=== PATIENT | female | born 1995 | race Caucasian/White ===

== ENCOUNTER 2021-11-05 14:13 | Outpatient (REF) | payer OTHER, SELFPAY ==
[2021-11-05 15:01] LABS: IDNOW Serial# 08D9AD1C
[2021-11-05 15:02] LABS: COVID-19 Test Negative (Negative)
== END 2021-11-05 14:14 | disposition home or self-care (01) ==
LOC: HO.LAB 14:13
PROVIDERS: Visit Provider Internal Medicine
DX: Z20.822 Contact with and (suspected) exposure to COVID-19 (principal)
CPT/HCPCS: 36415; 87635

== ENCOUNTER 2021-11-19 17:48 | Outpatient (REF) | payer OTHER, SELFPAY ==
[2021-11-19 18:40] LABS: COVID-19 Test Positive (Negative)
== END 2021-11-19 18:04 | disposition home or self-care (01) ==
LOC: HO.LAB 18:03
PROVIDERS: Visit Provider Internal Medicine
DX: Z20.822 Contact with and (suspected) exposure to COVID-19 (principal)
CPT/HCPCS: 36415; 87635

== ENCOUNTER 2022-03-21 17:00 | Outpatient (REF) | payer OTHER, SELFPAY ==
[2022-03-21 17:32] LABS: COVID-19 Test Negative (Negative)
== END 2022-03-21 17:01 | disposition home or self-care (01) ==
LOC: HO.LAB 17:00
PROVIDERS: Visit Provider Internal Medicine
DX: Z20.822 Contact with and (suspected) exposure to COVID-19 (principal)
CPT/HCPCS: 87635

== ENCOUNTER 2023-05-08 22:37 | Emergency (ER) | payer OTHER, SELFPAY ==
--- NOTE | ~2023-05-08 | XR_ITS ---
EXAMINATION: 1. Right foot. 2. Right ankle. CLINICAL INFORMATION: Injury. Pain. COMPARISON: None. TECHNIQUE: 1. Right foot. 3 views 2. Right ankle. 3 views FINDINGS: 1. Right foot. No fracture. No dislocation. Bone and joint are normal. 2. Right ankle. No fracture. No dislocation. Bone and joint are normal. No soft tissue abnormality. XR/XR foot RT 2V IMPRESSION: Right foot. Normal. Right ankle. Normal
--- NOTE | ~2023-05-08 | XR_ITS ---
EXAMINATION: 1. Right foot. 2. Right ankle. CLINICAL INFORMATION: Injury. Pain. COMPARISON: None. TECHNIQUE: 1. Right foot. 3 views 2. Right ankle. 3 views FINDINGS: 1. Right foot. No fracture. No dislocation. Bone and joint are normal. 2. Right ankle. No fracture. No dislocation. Bone and joint are normal. No soft tissue abnormality. XR/XR ankle RT 2V IMPRESSION: Right foot. Normal. Right ankle. Normal
[2023-05-08 22:38] VITALS: BP 135/75; PULSE 92; RESP 18; TEMP 36.6; O2SAT 97; BMI 29.6
--- NOTE | 2023-05-09 01:02 | ED_ITS ---
HPI - Extremity Injury (Lower) General Chief Complaint: Extremity Injury, Lower Stated Complaint: R ankle inj Time Seen by Provider: 05/09/23 00:38 Source: patient Mode of arrival: ambulatory Limitations: no limitations History of Present Illness HPI Narrative: Patient is a 27-year-old female presents emergency department for evaluation of right ankle pain. She reports at approximately 2000, she tripped down 2 stairs. Reports inversion of the right foot. She is experiencing pain to the lateral aspect of the right foot radiating to the lateral ankle. Denies numbness, tingling. Denies any prior injury to this ankle. Related Data Home Medications Medication Instructions Recorded Confirmed levothyroxine 137 mcg tablet 137 mcg PO DAILY 05/04/23 Review of Systems Review of Systems: Yes all other systems are reviewed and are negative [facility] Past Medical History Attestation statement: The following information was validated with the patient. Source: old records reviewed Social History Social History Advance Directives: No Advance Directives Information Provided: Yes Physical Exam Vital Signs: Vital Signs: Last Vital Signs Temp 98 F 05/08/23 22:38 Pulse 92 05/08/23 22:38 Resp 18 05/08/23 22:38 BP 135/75 05/08/23 22:38 Pulse Ox 97 05/08/23 22:38 O2 Del Method Room Air 05/08/23 22:38 BMI result Body Mass Index 29.6 Appearance: Alert.?Oriented to person, place and time. No acute distress.?Normal affect. CVS: Heart sounds normal. Normal heart rate and rhythm.? Pulses normal.?? Respiratory: No respiratory distress.? Lung sounds clear to auscultation bilaterally?? Skin: Skin warm and dry.? Normal skin color.? Normal skin turgor.?? Extremities: No lower extremity edema.? No calf ttp. 2+ DP/PT pulse bilaterally. Full AROM to right ankle. Neuro: Moves all extremities spontaneously. Sensation intact bilaterally. Ambulates with normal steady gait. Medical Decision Making Medical Decision Making MDM Narrative: Patient is 22 fibroid female who presents emergency department for evaluation of traumatic right ankle/foot pain as noted in HPI. Obtained XR imaging which reveals no acute fracture or dislocation. At this time symptoms most consistent with a sprain. Extremity is neurovascularly intact distally. Advise treatment with acetaminophen/ibuprofen in addition to rest, ice, Keenan bandage for com pression, elevation. Advised outpatient follow-up with primary care provider as needed. Reviewed worrisome signs and symptoms that warrant re-evaluation the emergency department. All questions answered. Stable for discharge. Differential Diagnosis Differential Diagnoses: The differential diagnosis associated with the presentation includes (As noted above) Independent Interpretation I performed an independent interpretation of an: Plain X-Ray (I personally interpreted XR imaging and agree with radiologist impression) Radiology Impression Discussion of test interpretation with radiology: I have reviewed the radiologist's reading. Radiologist Impression: XR/XR foot RT 2V IMPRESSION: Right foot. Normal. Right ankle. Normal Independent Historian Clinical information obtained from an independent historian. History obtained from or confirmed by: Spouse (Affirms history) Prescription Management I considered prescription management with: Pain Medication (Acetaminophen/ibuprofen) Discharge Plan Discharge Clinical Impression: Ankle sprain and strain Patient Disposition: Home, Self-Care Instructions: Ankle Sprain (ED), R.I.C.E. Treatment (ED) Prescriptions: No Action levothyroxine 137 mcg tablet 137 mcg PO DAILY Interventions: ED Discharge Assessment Last Done: 05/09/23 01:19 Discharge Date/Time: 05/09/23 01:20
== END 2023-05-09 01:20 | disposition home or self-care (01) ==
PROVIDERS: Emergency Provider Emergency Medicine
DX: S93.401A Sprain of unspecified ligament of right ankle, initial encounter (principal); S96.911A Strain of unspecified muscle and tendon at ankle and foot level, right foot, initial encounter; W10.8XXA Fall (on) (from) other stairs and steps, initial encounter; Y93.89 Activity, other specified; Y92.9 Unspecified place or not applicable; Y99.9 Unspecified external cause status
CPT/HCPCS: 73600; 73620; 99282; 99283

== ENCOUNTER 2023-06-26 09:46 | Outpatient (REF) | payer OTHER, SELFPAY ==
[2023-06-26 17:48] LABS: CT PCR NOT DETECTED (Not Detect.); NG PCR NOT DETECTED (Not Detect.)
== END 2023-06-26 09:47 | disposition home or self-care (01) ==
LOC: HO.LNP 09:46
PROVIDERS: Visit Provider Obstetrics & Gynecology
DX: Z30.432 Encounter for removal of intrauterine contraceptive device (principal); Z20.2 Contact with and (suspected) exposure to infections with a predominantly sexual mode of transmission
CPT/HCPCS: 0353U; 58301; 81025; 88142

== ENCOUNTER 2023-06-26 09:46 | Outpatient (AMB) | payer OTHER, SELFPAY ==
--- NOTE | 2023-06-26 09:54 | A.OFFVIS_ITS ---
Intake Vital Signs 06/26/23 09:59 Height 5 ft 11 in Weight 211 lb 10.3 oz BMI 29.5 BP 118/70 Intake Visit Reasons: IUD Special Effects Person Required: No Information Interpreted: non-clinical & clinical Eligibility And Occupancy Interviewer: Eligibility And Occupancy Interviewer Present (Jennifer EDMOND) Accompanied by: Self / Same As Patient Allergies No Known Allergies Allergy (Verified 06/26/23 10:01) Is last menstrual period known: No HPI HPI Comments History of Present Illness Details Presenting for annual exam. Last Pap smear was 4-5 years ago. The patient has Mirena IUD inserted in 2019, was diagnosed BRCA2 PFSH Medical History Hypothyroidism Family History Maternal Aunt Breast cancer Mother Breast cancer Paternal Grandfather Skin cancer Maternal Grandmother Skin cancer Paternal Aunt Uterus cancer Social History Household Members: Spouse Housing: House Alcohol intake: current Alcohol intake frequency: holidays/special occasions only Patient Tobacco Use Status: Never used Tobacco Current occupational status: employed Current occupation: [employer] [place] Sexual orientation: Straight/Heterosexual Gender identity: Female Female Reproductive History Menstrual control method: progestin IUCD Review of Systems Const All systems reviewed & are unremarkable except as noted in HPI and below Physical Exam Vital Signs: Last Vital Signs BP 118/70 06/26/23 09:59 BMI result Body Mass Index 29.5 Chest Chest palpation & inspection: normal inspection of the chest Breast/axilla inspection: normal inspection of the breasts and normal inspection of the axillae Breast/axilla palpation: normal palpation of the breasts, normal palpation of the axillae and no axillary lymphadenopathy General: Yes Bimanual renal exam normal bilaterally and Yes no CVA tenderness External Female Exam: normal external appearance and normal appearance of the urethra Speculum Exam - Vagina: normal appearance of the vagina, normal palpation, no lesions and no masses Speculum Exam - Cervix: normal appearance of the cervix, normal palpation, no lesions, no masses and nontender Bimanual exam- vagina & uterus: normal bimanual exam, normal palpation, uterine size normal, normal palpation, uterine shape normal, No Cervical tenderness present and non-tender Bimanual Exam- Adnexa, other: normal adnexae Back/Spine/Pelvis Back: no CVA tenderness Office Procedures IUD Insert/Removal Details Details: Counseling/Consent: After discussing with the patient the risks of the procedure including bleeding, infection, scar tissue formation, , possible injury to blood vessels or nerves, chronic arm pain, blood transfusion, and irregular unpredictable bleeding Alternative options were discussed with the patient including but not limited: Do nothing. The patient signed the consent and agreed with the plan; all questions answered. Urine test was done in the office and was negative Preop dx: Requesting IUD removal Op: IUD removal Post op dx: same EBL= 10 cc Procedure: The patient was put in the dorsal lithotomy position a speculum was inserted in the vagina the IUD thread identified. Using a Any clamp the thread was grasped and the IUD pulled out with no complications. The patient tolerated the procedure well and was advised to use a different method for contraception. Discharge instructions: Instructions were given to the pt to call if te mp>100.4, abdominal pain heavy vaginal bleeding, n/v occur. The patient verbalized understanding and all questions answered. This note was generated with a voice recognition program. Some errors may have been overlooked during the review of this note. Sometimes these errors may affect the content or meaning of a given sentence. 12929-VGJ Removal Procedure code (CPT) selection complete Results AMB Test Urine AMB Test Urine Negative Last Edit by Jennifer Craft CMA on 10:07 Results Reviewed Results Reviewed: Laboratory Last Values Tst Clinic Negative 06/26/23 10:07 Assessment & Plan Assessment & Plan (1) Well woman exam: Code(s): Z01.419 - Encounter for gynecological examination (general) (routine) without abnormal findings Plan: Pap smear taken with GC and chlamydia. The patient was instructed to perform monthly self-breast exams , to call for any changes in menstrual patterns and to schedule an annual exam in a year; all questions answered and the patient verbalized understanding. (2) Encounter for IUD removal: Code(s): Z30.432 - Encounter for removal of intrauterine contraceptive device Plan: Discussed with the patient the relationship Mirena IUD possible increase in the risk of breast cancer, recommended IUD removal, IUD removed, see procedure note. Recommended barrier methods or ParaGard IUD, the patient would like to think about it versus attempting conception (3) BRCA2 gene mutation positive: Code(s): Z15.01 - Genetic susceptibility to malignant neoplasm of breast; Z15.09 - Genetic susceptibility to other malignant neoplasm Plan: Discussed with the patient her increased risk for Breast ca ( ovarian ca risk , and increased risk for other cancers including but to limited to pancreatic ca, melanoma screening for breast can recommendation is that btw the age of 25-30 - annual MRI breast, and annual mammogram and MRI alternating every 6 months. Discussed with the patient ovarian ca screening, ca 125 and US annually are not recommended but can be used as a short term strategy till bilateral salpingo- oophorectomy is done. Also discussed with the patient chemoprevention strategies with Tamoxifen and Raloxiene all pros, cons risks and benefits were discussed with the patient. It reduces by 62% the risk of breast ca, BCP will decrease risk of ovarian ca with ? increase in risk of breast ca although recent studies did not show that increase. Discussed with the patient surgical risk reduction strategies including BSO, with all its pros, cons risks and benefits. The earlier it?s done the more effective the reduction in risk, therefore discussed with the patient attempting completing her family and plan bilateral salpingo- oophorectomy. Also discussed with the patient bilateral prophylactic mastectomy with all its pros, cons risks and benefits all questions answered patient verbalized understanding. Mammogram and breast MRI ordered, referral to Dr. Mcneil placed Orders: Orders CT NG by PCR Today Z01.419 - Encounter for gynecological examination (general) (routine) without abnormal findings, Z30.432 - Encounter for removal of intrauterine contraceptive device MM tomosynthesis screening BI Today Z12.31 - Encounter for screening mammogram for malignant neoplasm of breast, Z15.01 - Genetic susceptibility to malignant neoplasm of breast, Z15.09 - Genetic susceptibility to other malignant neoplasm MR breast BI wo/w con Today Z15.01 - Genetic susceptibility to malignant neoplasm of breast, Z15.09 - Genetic susceptibility to other malignant neoplasm AMB HCG Urine Test Today Z32.02 - Encounter for test, result negative Pap Smear Today Z01.419 - Encounter for gynecological examination (general) (routine) without abnormal findings, Z30.432 - Encounter for removal of intr auterine contraceptive device Referrals General Surgery Referral Z15.01 - Genetic susceptibility to malignant neoplasm of breast, Z15.09 - Genetic susceptibility to other malignant neoplasm, Z91.89 - Other specified personal risk factors, not elsewhere classified Coding Level of Care Code New Pt Prev Care 18-39yr([id number] Diagnoses Well woman exam Z01.419 Encounter for IUD removal Z30.432 BRCA2 gene mutation positive Z15.01; Z15.09 CPT Codes Details - CPT: 69354-MEJ Removal ([id number])
[2023-06-26 09:59] VITALS: BP 118/70; BMI 29.5
== END 2023-06-26 10:48 | disposition home or self-care (01) ==
LOC: HO.HWS 09:46
PROVIDERS: Visit Provider Obstetrics & Gynecology
DX: Z01.419 Encounter for gynecological examination (general) (routine) without abnormal findings (principal); Z15.01 Genetic susceptibility to malignant neoplasm of breast; Z15.09 Genetic susceptibility to other malignant neoplasm; Z30.432 Encounter for removal of intrauterine contraceptive device; Z32.02 Encounter for pregnancy test, result negative
CPT/HCPCS: 58301; 99385

== ENCOUNTER 2023-07-17 13:52 | Outpatient (AMB) | payer OTHER, SELFPAY ==
--- NOTE | 2023-07-17 13:52 | A.OFFVIS_ITS ---
Intake Vital Signs 07/17/23 14:01 Height 5 ft 11 in Weight 220 lb 4 oz BMI 30.7 BP 138/78 Blood Pressure Location Lt brachial Position Sitting Pulse 80 Intake Visit Reasons: BRCA2 gene mutation positive Z15.01; Z15.09 Intake Note: Patient is seen in office for evaluation and treatment of the breast. Patient c/o: denies any concerns regarding the breast, had genetic testing done and strong family hx of cancer. 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 Patient underwent genetic testing in 2018 and was determined to be BRCA2 positive. She denies any breast symptoms including breast lump, nipple discharge, skin changes or enlarged lymph nodes. She denies a previous history of breast problems or breast surgery. She is G0. She was evaluated by Dr. Escudero and breast MRI requested. She presents today to discuss her options regarding surgery. [facility] Medical History Hypothyroidism Family History Mother Breast cancer, Onset Age: 45 Paternal Grandfather Skin cancer Paternal Aunt Uterus cancer, Onset Age: 19 Paternal Grandmother Skin cancer Social History Household Members: Spouse Housing: House Alcohol intake: current Alcohol intake frequency: holidays/special occasions only Patient Tobacco Use Status: Never used Tobacco Current occupational status: employed Current [place] [employer] [place] Sexual orientation: Straight/Heterosexual Gender identity: Female Review of Systems Const All systems reviewed & are unremarkable except as noted in HPI and below Physical Exam Vital Signs: Last Vital Signs Pulse 80 07/17/23 14:01 BP 138/78 07/17/23 14:01 BMI result Body Mass Index 30.7 Const General: cooperative and no acute distress Nutritional Appearance: well nourished Orientation/consciousness: patient oriented x3 Limitations: no limitations HEENT Head: Yes normocephalic and Yes atraumatic Ears: hearing grossly normal bilaterally Chest Other: Mild fibrocystic changes noted bilaterally with no discrete mass Left breast: No skin change, no nipple retraction, no nipple discharge, no palpable mass, no enlarged lymph nodes. Right breast: No skin change, no nipple retraction, no nipple discharge, no palpable mass, no enlarged lymph nodes Resp Effort & Inspection: normal respiratory effort, no audible wheezes, no cough and no respiratory distress Cardio Jugular venous distension: no JVD GI Inspection: Yes normal to inspection Skin Other: Warm, dry, no rash Neuro General: patient oriented x3 Extrem General: Yes no clubbing, cyanosis or edema Assessment & Plan Assessment & Plan (1) BRCA2 gene mutation positive: Code(s): Z15.01 - Genetic susceptibility to malignant neoplasm of breast; Z15.09 - Genetic susceptibility to other malignant neoplasm (2) At high risk for breast cancer: Code(s): Z91.89 - Other specified personal risk factors, not elsewhere classified (3) Family history of breast cancer: Code(s): Z80.3 - Family history of malignant neoplasm of breast Plan 27-year-old female patient with a known BRCA2 genetic mutation and strong family history of breast cancer including her mother who developed breast cancer in her 40s. We discussed surgical options for risk reduction including bilateral mas tectomy with and without immediate reconstruction. She has previously discussed oophorectomy with Dr. Escudero. Options include very close observation with frequent breast examination, self examination, breast MRI and mammography verses prophylactic surgery. Examination today revealed no suspicious findings in either breast. She wishes to hold off on the surgical option for now but understands when she has completed her family, prophylactic mastectomy is highly recommended. I would recommend a baseline mammogram and MRI and at least twice yearly clinical breast examination. She is welcome to return sooner for any new concerns. Orders: Orders MM screening mammo BI Today Z15.01 - Genetic susceptibility to malignant neoplasm of breast, Z15.09 - Genetic susceptibility to other malignant neoplasm, Z80.3 - Family history of malignant neoplasm of breast, Z91.89 - Other specified personal risk factors, not elsewhere classified MR breast BI wo/w con Today Z15.01 - Genetic susceptibility to malignant neoplasm of breast, Z15.09 - Genetic susceptibility to other malignant neoplasm, Z80.3 - Family history of malignant neoplasm of breast, Z91.89 - Other specified personal risk factors, not elsewhere classified Coding Level of Care Code New Pt Level 4 (89471) Diagnoses BRCA2 gene mutation positive Z15.01; Z15.09 At high risk for breast cancer Z91.89 Family history of breast cancer Z80.3
[2023-07-17 14:01] VITALS: BP 138/78; PULSE 80; BMI 30.7
== END 2023-07-17 14:39 | disposition home or self-care (01) ==
PROVIDERS: Referring Provider Obstetrics & Gynecology; Visit Provider Surgery
DX: Z15.01 Genetic susceptibility to malignant neoplasm of breast (principal); Z15.09 Genetic susceptibility to other malignant neoplasm; Z91.89 Other specified personal risk factors, not elsewhere classified; Z80.3 Family history of malignant neoplasm of breast
CPT/HCPCS: 99204

== ENCOUNTER → 2023-07-17 13:52 | Outpatient (BNVA) | payer OTHER, SELFPAY | PROVIDERS: Referring Provider Obstetrics & Gynecology; Visit Provider Surgery ==

== ENCOUNTER 2023-08-04 08:50 | Outpatient (REF) | payer OTHER, SELFPAY ==
--- NOTE | ~2023-08-04 | MM_ITS ---
EXAMINATION: MM SCREENING DIGITAL BREAST TOMOSYNTHESIS, BILATERAL CLINICAL INFORMATION: Screening. Asymptomatic. 27-year-old female. BRCA2 mutation positive. Mother with breast breast CA at age 45, also with BRCA2 mutation. COMPARISON: Mammography: Baseline exam. No priors. TECHNIQUE: Digital breast tomosynthesis is performed in both the craniocaudal and mediolateral oblique views along with computer-aided detection (CAD). Synthesized 2D images are generated from the tomosynthesis. FINDINGS: There are scattered areas of fibroglandular density (ACR BI-RADS breast composition Category b). RIGHT BREAST: In the upper outer RIGHT breast, there is a focal asymmetric density, middle to posterior one third, for which diagnostic views are recommended to include spot compression 3-D views in the CC and MLO projections, as well as a 90 degree 3-D full-field left MLO projection. Targeted RIGHT breast ultrasound could be performed if the abnormality persists as per the interpreting physician. LEFT BREAST: There is a focal asymmetric density in the upper outer LEFT breast, middle one third, for which diagnostic views are advised to include spot compression 3-D views in the CC and MLO projections, as well as a 90 degree 3-D full-field left ML projection. There is a 1 view asymmetry on the left CC projection in the medial aspect of the anterior one third of the LEFT breast, for which spot compression small paddle 3-D CC view is recommended. Targeted LEFT breast ultrasound could be performed if the abnormality persists as per the interpreting physician. MM/MM tomosynthesis screening BI IMPRESSION: Bilateral focal asymmetries to be evaluated with diagnostic views as above. 1 view asymmetry in the anteromedial left breast seen on the CC projection only, also to be evaluated with diagnostic views. ASSESSMENT: BI-RADS BI-RADS 0 - Incomplete: Needs additional Imaging. RECOMMENDATION: 1. Additional views of the bilateral breasts. 2. Targeted ultrasound if warranted after review of the additional views. 3. Radiology department staff will contact the patient for additional imaging. 1 year F/U This examination should not preclude the clinical evaluation of a suspicious palpable abnormality. This patient's information was entered into a reminder system with a target due date for their next mammogram.
== END 2023-08-04 08:51 | disposition home or self-care (01) ==
LOC: HO.MAMMO 08:50
PROVIDERS: Visit Provider Surgery
DX: Z12.31 Encounter for screening mammogram for malignant neoplasm of breast (principal)
CPT/HCPCS: 77063; 77067

== ENCOUNTER → 2023-08-04 09:00 | Outpatient (BNV) | payer OTHER, SELFPAY | PROVIDERS: Visit Provider Radiology Diagnostic Radiology | DX: Z12.31 Encounter for screening mammogram for malignant neoplasm of breast (principal) | CPT/HCPCS: 77063; 77067 ==

== ENCOUNTER 2023-08-08 10:48 | Outpatient (REF) | payer OTHER, SELFPAY ==
--- NOTE | ~2023-08-08 | MM_ITS ---
EXAMINATION: MM DIAGNOSTIC DIGITAL BREAST TOMOSYNTHESIS, BILATERAL US BREAST LIMITED, BILATERAL MAMMOGRAPHY: CLINICAL INFORMATION: Follow-up bilateral breast asymmetries identified on baseline screening mammography 08/04/2023. 27-year-old female, BRCA2 mutation positive. Mother with breast CA at age 45, also with BRCA2 mutation. COMPARISON: Mammography: Baseline screening 08/04/2023. TECHNIQUE: Digital breast tomosynthesis is performed including bilateral 3-D full-field 90 degree mediolateral views, as well as 3-D left MLO spot compression views x2, 3-D left CC spot compression view, and right CC and MLO 3-D spot compression views along with computer-aided detection (CAD). Synthesized 2D images are generated from the tomosynthesis. FINDINGS: There are scattered areas of fibroglandular density (ACR BI-RADS breast composition Category b). RIGHT BREAST: The focal asymmetry in the upper outer quadrant right breast does not persist on diagnostic views, and is consistent with overlapping normal heterogeneously dense fibroglandular tissue. A small lymph node is also present in the axillary tail region of the right breast, benign. There are no persistent suspicious abnormalities in the right breast. LEFT BREAST: The focal asymmetric density in the upper outer left breast, middle one third, does not persist on diagnostic views and is consistent with overlapping normal heterogeneously dense fibroglandular tissue. In addition, the one view asymmetry on the left CC projection in the anterior medial aspect of the left breast also does not persist on spot compression views and is also consistent with superimposition artifact. There are no persistent suspicious abnormalities in the left breast. ULTRASOUND: CLINICAL INFORMATION: High risk 27-year-old female with bilateral asymmetric densities on baseline screening. COMPARISON: No prior. Reference made to baseline screening 08/04/2023. TECHNIQUE: Targeted sonographic evaluation was performed of the upper outer quadrant of both breasts using a high frequency linear transducer. Selected archived documentation. FINDINGS: RIGHT BREAST: There is a mixture of fatty and fibroglandular tissue. No suspicious mass is seen. There is no pathologic acoustic shadowing. No cystic abnormalities. LEFT BREAST: There is a mixture of fatty and fibroglandular tissue. No suspicious mass is seen. There is no pathologic acoustic shadowing. No cystic abnormalities. MM/MM tomosynthesis added view BI IMPRESSION: There are no persistent suspicious abnormalities in either breast on diagnostic mammographic views and diagnostic sonography. No findings suspicious for malignancy in either breast. Recommend the patient resume routine annual screening mammography. MRI should be considered as an adjunct given BRCA2 positive state. OVERALL ASSESSMENT: Mammography: BI-RADS 2 - Benign Findings Ultrasound: BI-RADS 2 - Benign Findings RECOMMENDATION: 1 year F/U This patient's information was entered into a reminder system with a target due date for their next mammogram.
== END 2023-08-08 10:49 | disposition home or self-care (01) ==
LOC: HO.MAMMO 10:48
PROVIDERS: PCP Nurse Practitioner Family; Visit Provider Surgery
DX: R92.8 Other abnormal and inconclusive findings on diagnostic imaging of breast (principal)
CPT/HCPCS: 76642; 77062; 77066

== ENCOUNTER → 2023-08-08 11:45 | Outpatient (BNV) | payer OTHER, SELFPAY | PROVIDERS: PCP Nurse Practitioner Family; Visit Provider Radiology Diagnostic Radiology | DX: R92.2 Inconclusive mammogram (principal) | CPT/HCPCS: 76642; 77062; 77066 ==

== ENCOUNTER 2023-08-15 14:57 | Outpatient (REF) | payer OTHER, SELFPAY ==
--- NOTE | ~2023-08-15 | MR_ITS ---
EXAMINATION: MR BREAST WITHOUT AND WITH CONTRAST, BILATERAL CLINICAL INFORMATION: High-risk screening. BRCA2 mutation positive. Mother with premenopausal breast cancer at age 45, BRCA2 mutation positive. COMPARISON: Screening and subsequent diagnostic mammography and ultrasound 07/2023. TECHNIQUE: Imaging was performed with a dedicated breast coil. Prior to the administration of contrast, bilateral axial T1 and bilateral axial T2 weighted sequences were obtained. After the uneventful administration of?10 mL of Gadavist, dynamic contrast-enhanced VIBRANT series through the breasts in the axial plane were performed. Subtracted images were performed and reviewed. A delayed sagittal sequence through both breasts was acquired. Additionally, CAD post-processing, including maximum intensity projections, 3-D reconstructions and kinetic analysis, were performed an independent workstation and reviewed by the interpreting radiologist is a portion of this exam. FINDINGS: The breasts are comprised of scattered, patchy areas of fibroglandular parenchyma. The tissue undergoes mild background enhancement. LEFT BREAST: There is a subtle, 2.5 x 1.5 x 1.0 cm non-mass enhancement in the right breast 3 o'clock posterior position (series 100, image 59/114) 6.5 cm from the nipple. Finding is T2 bright with type I progressive enhancement kinetics. No mammographic correlate. Given high-risk status suggest MR biopsy. Scattered normal-appearing intramammary nodes noted in the left upper outer quadrant. No skin thickening or nipple retraction. RIGHT BREAST: No suspicious mass, dominant non-mass enhancement or architectural distortion. Scattered normal intramammary nodes noted in the upper outer quadrant. No skin thickening or nipple retraction. There is no suspicious internal mammary chain or axillary adenopathy. Limited views of the chest and abdomen are unremarkable. MR/MR breast BI wo/w con IMPRESSION: A 2.5 cm non-mass enhancement in the posterior 3 o'clock position of the left breast. ASSESSMENT: LEFT BREAST: BI-RADS 4, suspicious finding. RIGHT BREAST: BI-RADS 1-Negative. RECOMMENDATIONS: Recommend MR guided core biopsy of the left breast at the 3 o'clock position. (Note: Report issued following phone calls to referring service; [place] radiology physician learning support specialist will communicate results with referring clinician)
[2023-08-15] MEDS: gadobutroL 10 ML VIAL IVPUSH (16:11)
== END 2023-08-15 14:58 | disposition home or self-care (01) ==
LOC: HO.MRI 14:57
PROVIDERS: PCP Nurse Practitioner Family; Visit Provider Surgery
DX: Z15.01 Genetic susceptibility to malignant neoplasm of breast (principal); Z91.89 Other specified personal risk factors, not elsewhere classified; Z80.3 Family history of malignant neoplasm of breast
CPT/HCPCS: 77049; A9585

== ENCOUNTER 2023-10-16 15:36 | Outpatient (REF) | payer OTHER, SELFPAY ==
[2023-10-17 09:37] LABS: Free T4 (Free Thyroxine) 0.94 ng/dL (0.71-1.85); Thyroid Stimulating Hormone 2.25 uIU/mL (0.32-4.0)
== END 2023-10-16 15:37 | disposition home or self-care (01) ==
LOC: HO.LAB 15:36
PROVIDERS: Visit Provider Internal Medicine Endocrinology, Diabetes & Metabolism
DX: E03.9 Hypothyroidism, unspecified (principal)
CPT/HCPCS: 36415; 84439; 84443

== ENCOUNTER 2024-02-07 09:26 | Outpatient (AMB) | payer OTHER, SELFPAY ==
--- NOTE | 2024-02-07 09:29 | MHC.OFFVIS ---
Intake Vital Signs 02/07/24 09:35 Height 5 ft 11 in Weight 224 lb 8 oz BMI 31.3 BP 126/60 Blood Pressure Location Lt brachial Position Sitting Pulse 64 Intake Visit Reasons: 6 mth follow up BRAC 2 (+) Intake Note: Patient is seen in office for 6 month follow up visit, breast exam. 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 Patient underwent genetic testing in 2018 and was determined to be BRCA2 positive. She denies any breast symptoms including breast lump, nipple discharge, skin changes or enlarged lymph nodes. She denies a previous history of breast problems or breast surgery. She is G0. Mammogram performed on 08/08/2023 revealed no mammographic evidence of malignancy (BI-RADS 2). MRI performed on 08/15/2023 revealed a suspicious finding in the left breast (BI-RADS 4 left breast), and MR guided core biopsy was performed at [facility] on 08/27/2023. 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 She returns today for follow-up breast examination. 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 [employer] Sexual orientation: Straight/Heterosexual Gender identity: Female Review of Systems Const All systems reviewed & are unremarkable except as noted in HPI and below Physical Exam Const General: cooperative and no acute distress Nutritional Appearance: well nourished Orientation/consciousness: patient oriented x3 Limitations: no limitations HEENT Head: Yes normocephalic and Yes atraumatic Ears: hearing grossly normal bilaterally Chest Other: Mild fibrocystic changes noted bilaterally with no discrete mass Left breast: No skin change, no nipple retraction, no nipple discharge, no palpable mass, no enlarged lymph nodes. Right breast: No skin change, no nipple retraction, no nipple discharge, no palpable mass, no enlarged lymph nodes Resp Effort & Inspection: normal respiratory effort, no audible wheezes, no cough and no respiratory distress Cardio Jugular venous distension: no JVD GI Inspection: Yes normal to inspection Skin Other: Warm, dry, no rash Neuro General: patient oriented x3 Extrem General: Yes no clubbing, cyanosis or edema Assessment & Plan Assessment & Plan (1) BRCA2 gene mutation positive: Code(s): Z15.01 - Genetic susceptibility to malignant neoplasm of breast; Z15.09 - Genetic susceptibility to other malignant neoplasm (2) At high risk for breast cancer: Code(s): Z91.89 - Other specified personal risk factors, not elsewhere classified (3) Family history of breast cancer: Code(s): Z80.3 - Family history of malignant neoplasm of breast Plan 28-year-old female patient with a known BRCA2 genetic mutation and strong family history of breast cancer including her mother who developed breast cancer in her 40s. We discussed surgical options for risk reduction including bilateral mastectomy with and without immediate reconstruction. She has previously discussed oophorectomy with Dr. Escudero. Options include very close observation with frequent breast examination, self examination, breast MRI and mammography verses prophylactic surgery. Examination today revealed no suspicious findings in either breast. She wishes to hold off on the surgical option for now but understands when she has completed her family, prophylactic mastectomy is highly recommended. She underwent baseline mammogram and MRI examinations. She should continue with her high risk screening including mammogram and MRI. She will follow-up in 6 months for routine breast examination. She should call sooner for any new concerns. Orders: Orders MM screening mammo BI 08/09/24 Z15.01 - Genetic susceptibility to malignant neoplasm of breast, Z15.09 - Genetic susceptibility to other malignant neoplasm, Z80.3 - Family history of malignant neoplasm of breast, Z91.89 - Other specified personal risk factors, not elsewhere classified Coding Level of Care Code Est Pt Level 3 (49921) Diagnoses BRCA2 gene mutation positive Z15.01; Z15.09 At high risk for breast cancer Z91.89 Family history of breast cancer Z80.3
[2024-02-07 09:35] VITALS: BP 126/60; PULSE 64; BMI 31.3
== END 2024-02-07 09:48 | disposition home or self-care (01) ==
PROVIDERS: Visit Provider Surgery
DX: Z15.01 Genetic susceptibility to malignant neoplasm of breast (principal); Z15.09 Genetic susceptibility to other malignant neoplasm; Z91.89 Other specified personal risk factors, not elsewhere classified; Z80.3 Family history of malignant neoplasm of breast
CPT/HCPCS: 99213

== ENCOUNTER → 2024-02-07 09:26 | Outpatient (BNVA) | payer OTHER, SELFPAY | PROVIDERS: Visit Provider Surgery ==

== ENCOUNTER 2024-02-28 15:00 | Outpatient (REF) | payer OTHER, SELFPAY ==
--- NOTE | ~2024-02-28 | XR_ITS ---
EXAMINATION: XR HAND, RIGHT CLINICAL INFORMATION: Patient signed consent form. Injury. Radiopaque marker placed by technologist to indicated area of concern indicated by patient along the distal tuft of second digit. COMPARISON: None available. TECHNIQUE: PA, lateral, and oblique views of the right hand. FINDINGS: There is mild soft tissue swelling in the region of the distal tuft of the second digit, in the area of concern indicated by the patient to the technologist. No displaced fracture of the distal tuft of the second digit is appreciated. No radiopaque foreign body identified in the region of the distal tuft of the second digit. Joint spaces and alignment are preserved. Bone mineralization is normal. XR/XR hand RT min 3V IMPRESSION: 1. Mild soft tissue swelling in the region of the distal tuft of the second digit, in the area of concern indicated by the patient to the technologist. No displaced fracture of the distal tuft of the second digit is appreciated. 2. Recommend follow-up imaging in 10-14 days if fracture is suspected. This study was presented today 03/10/2024 for interpretation. Stat results provided at this time as requested by referring provider.
== END 2024-02-28 15:01 | disposition home or self-care (01) ==
LOC: HO.XRAY 15:00
PROVIDERS: Visit Provider Physician Assistant
DX: M79.644 Pain in right finger(s) (principal)
CPT/HCPCS: 73130

== ENCOUNTER 2024-03-13 09:09 | Outpatient (AMB) | payer OTHER, SELFPAY ==
[2024-03-13 09:11] VITALS: BP 128/72; PULSE 86; O2SAT 97; BMI 39.3
--- NOTE | 2024-03-13 09:11 | MHC.PC.OV ---
Vital Signs 03/13/24 09:11 Height 5 ft 11 in Weight 282 lb 2 oz BMI 39.3 BP 128/72 Blood Pressure Location Rt brachial Position Sitting Pulse 86 Pulse Source Pulse Oximeter Pulse Oximetry (%) 97 Oxygen Delivery Method Room Air Intake Visit Reasons: Est Care/missed appt 03/06 Intake Note: Pt is here today to establish care. Allergies No Known Allergies Allergy (Verified 03/13/24 09:23) Medication List - Last Reconciled 03/13/24 by JARROD Wilson levothyroxine 137 mcg PO DAILY Tobacco use date assessed: 03/13/24 Dental Screening Dental Screen Date: 03/13/24 Did you have a dental visit in the last 12 months?: Yes Did you have a dental problem in the last 6 months where you did not have access to dental care?: No Was dental information given to patient?: Patient has dentist HPI HPI Comments History of Present Illness Details Patient is a 28-year-old female who I am meeting for the 1st time. Patient has history of BRCA positive mutation and is being followed by OBGYN, and General surgery. Patient is currently on scheduled getting of breast ultrasounds, mammograms, an MRI every 6 months. Patient is up-to-date with Pap smear. Patient has a past medical history for hypothyroidism. 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 She also has history of anxiety and depression with panic attacks. She is in between seeing therapist as her previous therapist left. She is not currently taking any medication for this. Patient Denies SI/HI. Patient is interested in starting SSRI, will also have patient meet community navigator to establish care with therapist and psychiatrist. [facility] Medical History BRCA gene mutation positive Hypothyroidism Family History Mother Breast cancer, Onset Age: 45 Paternal Grandfather Skin cancer Paternal Aunt Uterus cancer, Onset Age: 19 Paternal Grandmother Skin cancer Social History Household Members: Spouse Housing: House Alcohol intake: current Alcohol intake frequency: holidays/special occasions only Patient Tobacco Use Status: Never used Tobacco e-Cigarette/Vaping Use: Never Used service: No Current occupational status: employed Current occupation: [employer] Sexual orientation: Straight/Heterosexual Gender identity: Female Cognitive needs: No Hearing needs: No Vision needs: No Questionnaire PHQ-9 Over the last 2 weeks, how often have you been bothered by any of the following problems? 1. Little interest or pleasure in doing things: more than half the days 2. Feeling down, depressed, or hopeless: nearly every day 3. Trouble falling or staying asleep, or sleeping too much: nearly every day 4. Feeling tired or having little energy: more than half the days 5. Poor appetite or overeating: more than half the days 6. Feeling bad about yourself - or that you are a failure or have let yourself or your family down: nearly every day 7. Trouble concentrating on things, such as reading the newspaper or watching television: nearly every day 8. Moving or speaking so slowly that other people could have noticed. Or the opposite - being so fidgety or restless that you have been moving around a lot more than usual: not at all 9. Thoughts that you would be better off or of hurting yourself in some way: several days Total score: 19 Depression Screening Interpretation: Positive Depression Screening Follow-up: Existing condition, In treatment and Community Mental Health Worker F/U Depression Screening Done: Yes 04348 - PHQ-9 Billing: Yes Source: Developed by Drs. Jack Donnelly, Jeanette Maier, Keenan Dotson and colleagues, with an educational kathi from [employer]. Thrive Questionnaire Date Thrive assessed: 03/13/24 I am a: Patient What is your living situation today?: I have a steady place to live Within the past 12 months, did the food you bought not last and you didn't have the money to get more?: Never true Within the past 12 months, did you worry whether your food would run out before you got money to buy more?: Never true Do you have trouble paying for medicines?: No Do you have trouble getting transportation to medical appointments?: No Do you have trouble paying your heating and electricity bill?: No Do you have trouble taking care of your child, family member or friend?: No Do you have trouble with day-to-day activities such as bathing, preparing meals, shopping, managing finances, etc.?: No Are you currently unemployed and looking for a job?: No Are you interested in more education?: No Please select the resources that you would like help with: None Currently or been in a relationship where the following occur: no concerns reported THRIVE Score: 0 AUDIT C Alcohol Use Questionnaire (AUDIT-C) 1. How often do you have a drink containing alcohol?: Never 3. How often do you have six or more drinks on one occasion?: Never Total Score: 0 Score Reviewed/Action Taken: Yes OSEAS-7 AMB Questionnaire OSEAS-7 Date OSESA - 7 assessed: 03/13/24 Feeling nervous, anxious, or on edge: 3 = Nearly every day Not being able to stop or control worryin = Nearly every day Worrying too much about different things: 3 = Nearly every day Trouble relaxin = Nearly every day Being so restless that it is hard to sit still: 1 = Several days Becoming easily annoyed or irritable: 2 = More than half the days Feeling afraid as if something awful might happen: 3 = Nearly every day Total OSEAS-7 score (0-4 normal; 5-9 mild; 10-14 moderate; 15-21 severe): 18 Source: Developed by Drs. Jack Donnelly, Jeanette Maier, Keenan Dotson and colleagues, with an educational kathi from [employer]. OSEAS-7 Assessment Billing OSEAS-7 Assessment Tool: OSEAS-7 Assessment 69282 (Patient started on Lexapro, will be given hydroxyzine. Patient also connecting with therapist and psychiatrist) Review of Systems Const All systems reviewed & are unremarkable except as noted in HPI and below Card Denies chest pain and Denies dyspnea Resp Denies dyspnea GI Denies diarrhea, Denies nausea and Denies vomiting Musc Denies tingling Neuro Denies tingling and Denies paresthesias Psych Reports abnormal sleep pattern, Reports anxiety, Reports panic attacks, Denies homicidal ideation and Denies suicidal ideation Physical exam (Primary Care) Vital Signs: Last Vital Signs Pulse 86 03/13/24 09:11 BP 128/72 03/13/24 09:11 Pulse Ox 97 03/13/24 09:11 Oxygen Delivery Method Room Air 03/13/24 09:11 BMI result Body Mass Index 39.3 Tobacco/Smoking Status: Tobacco use Status Tobacco use date assessed 03/13/24 03/13/24 09:13 Patient Tobacco Use Status Never used Tobacco 03/13/24 09:13 e-Cigarette/Vaping Use Never Used 03/13/24 09:13 PHQ-9: PHQ-9 Score PHQ-9: Total score 19 03/13/24 10:22 Depression Screening Interpretation: Positive Depression Screening Follow-up: Existing condition, In treatment and Community Mental Health Worker F/U Thrive Assessment: Date of Thrive Assessment Date Thrive assessed 03/13/24 03/13/24 10:00 Currently or been in a relationship where the following occur: no concerns reported Const Other: Appearance: Alert.? Oriented X3.? No acute distress.? Head: Normocephalic, atraumatic. Neck: Normal inspection.? Neck supple.? CVS: Normal heart rate and rhythm.? Pulses normal.? Respiratory: No respiratory distress.? Breath sounds normal.? Neuro: Oriented X 3.? No motor deficit.? No sensory deficit. Assessment and Plan Assessment & Plan (1) Anxiety and depression: Comment: Will start patient on escitalopram 5 mg p.o. daily. Will also give patient hydroxyzine to be taken as prescribed. Patient has upcoming airplane flight, has past history of panic attacks while flying. Will give diazepam for the upcoming flight. Patient understands not to combine hydroxyzine with diazepam. Code(s): F41.9 - Anxiety disorder, unspecified; F32.A - Depression, unspecified Plan: Take your medications as prescribed. If you were prescribed antibiotics today, it is important that you take your medication to their entirety, do not skip any doses, do not finish them early. Follow-up with your primary care provider this week. Return to the emergency department with new or worsening symptoms. Such as fevers, chills, chest pain, shortness of breath, nausea, vomiting, dizziness, headache, vision changes, lethargy In case of emergency call 911 Plan Patient will follow-up in 4 weeks. Orders: Orders Complete Blood Count Auto Diff Today Z13.0 - Encounter for screening for diseases of the blood and blood-forming organs and certain disorders involving the immune mechanism Vitamin B12 Today Z13.21 - Encounter for screening for nutritional disorder UA CC w/rflx Micro + Cult Today Z13. - Encounter for screening for other disorder Comprehensive Met. Panel Today Z91.89 - Other specified personal risk factors, not elsewhere classified Vitamin D 25-OH (D2 and D3) Today Z13. - Encounter for screening for nutritional disorder Vitamin B6 Today Z13.21 - Encounter for screening for nutritional disorder Lipid Panel Today Z13.220 - Encounter for screening for lipoid disorders Medications: New levothyroxine 137 mcg PO DAILY 90 tabs 0RF escitalopram oxalate (Lexapro) 5 mg PO DAILY 90 tabs 0RF hydroxyzine HCl 25 mg PO BEDTIME PRN 30 tabs 0RF anxiety diazepam 2 mg PO ONCE PRN 2 tabs 0RF anxiety Coding Level of Care Code Est Pt Level 4 (68913) Diagnoses Anxiety and depression F41.9; F32.A Additional Codes OSEAS-7 Assessment Billing - OSEAS-7 Assessment Tool: OSEAS-7 Assessment 70465 ([id number]) Time Spent (min) 32
== END 2024-03-13 10:52 | disposition home or self-care (01) ==
PROVIDERS: Visit Provider Nurse Practitioner Primary Care
DX: F41.9 Anxiety disorder, unspecified (principal); F32.A Depression, unspecified
CPT/HCPCS: 99214

== ENCOUNTER 2024-04-08 07:46 | Outpatient (REF) | payer OTHER, SELFPAY | END 2024-04-08 07:47 | disposition home or self-care (01) | LOC: HO.LAB 07:46 | PROVIDERS: Absent Provider Internal Medicine Endocrinology, Diabetes & Metabolism; PCP Nurse Practitioner Primary Care; Visit Provider Nurse Practitioner Primary Care | DX: Z13.89 Encounter for screening for other disorder (principal) ==

== ENCOUNTER 2024-05-26 07:26 | Outpatient (REF) | payer OTHER, SELFPAY ==
[2024-05-26 07:53] LABS: MANUAL DIFF FLAG NO
[2024-05-26 08:31] LABS: Basophils Percent Auto 0.5 % (0-2); Eosinophils Absolute Auto 0.1 X10*3/uL (0.0-0.4); Eosinophils Percent Auto 1.5 % (0-4); Hemoglobin 13.7 g/dl (12.0-16.0); Imm Gran Abs Auto 0.04 X10*3/uL (0.00-0.03); Imm Gran Pct Auto 0.5 % (0.0-0.4); Lymphocytes Absolute Auto 1.9 X10*3/uL (1.2-4.9); Lymphocytes Percent Auto 21.8 % (20-40); Mean Corpuscular HGB Conc 35.1 g/dl (31.0-35.0); Mean Corpuscular Hemoglobin 31.8 pg (27.0-33.0); Mean Corpuscular Volume 90.5 fL (80.0-98.0); Mean Platelet Volume 10.7 fL (9.4-12.3); Monocytes Absolute Auto 0.5 X10*3/uL (0.1-1.2); Neutrophils Absolute Auto 6.1 x10*3/uL (2.0-8.3); Neutrophils Percent Auto 69.7 % (45-73); Platelet Count 226 X10*3/uL (160-400); Red Blood Count 4.31 X10*6/uL (4.20-5.50); Red Cell Distribution Width 13.1 % (11.0-16.0); White Blood Count 8.7 X10*3/uL (4.8-10.8)
[2024-05-26 09:15] LABS: Appearance Urine Clear; Color Urine Yellow; Glucose Urine UA Negative (Negative); Leukocyte Esterase Urine Negative (Negative); Nitrite Urine Negative (Negative); PH 5.5 (5.0-9.0); Specific Gravity - Urine 1.025 (1.005-1.025); Urine Blood Negative (Negative); Urine Ketones Negative (Negative); Urine Protein Negative (Neg-Trace)
[2024-05-26 09:18] LABS: Alanine Aminotransferase 20 U/L (0-31); Albumin Level 4.1 g/dL (3.5-5.0); Alkaline Phosphatase 72 U/L (39-117); Anion Gap 13 (12-20); Aspartate Amino Transferase 20 U/L (5-31); Bilirubin Total 0.4 mg/dL (0.0-1.0); Blood Urea Nitrogen 10 mg/dL (9-16); Calcium 9.3 mg/dL (8.4-10.2); Carbon Dioxide 26 mmol/L (22-29); Chloride 105 mmol/L (96-108); Cholesterol 195 mg/dL (<200); Estimated Glomerular Filt Rate > 60; Glucose Random 84 mg/dL (60-115); HDL Cholesterol 59 mg/dL (>40); LDL Cholesterol Calculated 117 mg/dL (<100); Potassium 3.7 mmol/L (3.3-5.1); Sodium 140 mmol/L (135-145); Triglycerides 95 mg/dL (<150)
[2024-05-26 09:32] LABS: Vitamin B12 405 pg/mL (200-900)
[2024-05-30 16:53] LABS: Vitamin D 25-OH, D2 <4 ng/mL; Vitamin D 25-OH, D3 29 ng/mL; Vitamin D 25-OH, Total 29 ng/mL (30-100)
[2024-05-30 17:43] LABS: Vitamin B6 47.6 ng/mL (2.1-21.7)
== END 2024-05-26 07:27 | disposition home or self-care (01) ==
LOC: HO.LAB 07:26
PROVIDERS: Absent Provider Obstetrics & Gynecology; PCP Nurse Practitioner Primary Care; Visit Provider Nurse Practitioner Primary Care
DX: Z13.21 Encounter for screening for nutritional disorder (principal); Z13.220 Encounter for screening for lipoid disorders; Z13.0 Encounter for screening for diseases of the blood and blood-forming organs and certain disorders involving the immune mechanism; Z13.89 Encounter for screening for other disorder; Z91.89 Other specified personal risk factors, not elsewhere classified; Z34.01 Encounter for supervision of normal first pregnancy, first trimester
CPT/HCPCS: 36415; 80053; 80061; 81003; 82306; 82607; 84207; 85025

== ENCOUNTER 2024-08-14 15:42 | Outpatient (AMB) | payer OTHER, SELFPAY ==
--- NOTE | 2024-08-14 15:49 | A.OFFVIS_ITS ---
Vital Signs 08/14/24 15:59 Height 5 ft 11 in Weight 238 lb BMI 33.2 BP 119/65 Blood Pressure Location Lt brachial Position Sitting Pulse 86 Intake Visit Reasons: 6 mth follow up BRAC 2 (+) Intake Note: Patient is seen in office for 6 month follow up visit, breast exam. 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 Patient underwent genetic testing in 2018 and was determined to be BRCA2 positive. She denies any breast symptoms including breast lump, nipple discharge, skin changes or enlarged lymph nodes. She denies a previous history of breast problems or breast surgery. She is now with an estimated delivery date of 12/08/2024. She feels well and denies any ongoing breast symptoms. Her most recent mammogram performed on 08/08/2023 revealed no mammographic evidence of malignancy (BI-RADS 2). MRI performed on 08/15/2023 revealed a suspicious finding in the left breast (BI-RADS 4 left breast), and MR guided core biopsy was performed at [place] on 08/27/2023. 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 She discussed follow- up imaging with Dr. Morales at the [facility] who recommended avoiding mammogram and performing a breast ultrasound and MRI. [facility] Medical History BRCA gene mutation positive Hypothyroidism Family History Mother Breast cancer, Onset Age: 45 Paternal Grandfather Skin cancer Paternal Aunt Uterus cancer, Onset Age: 19 Paternal Grandmother Skin cancer Social History Household Members: Spouse Housing: House Alcohol intake: current Alcohol intake frequency: holidays/special occasions only Patient Tobacco Use Status: Never used Tobacco e-Cigarette/Vaping Use: Never Used service: No Current occupational status: employed Current occupation: [employer] Sexual orientation: Straight/Heterosexual Gender identity: Female Cognitive needs: No Hearing needs: No Vision needs: No Review of Systems Const All systems reviewed & are unremarkable except as noted in HPI and below Physical Exam Vital Signs: Last Vital Signs Pulse 86 08/14/24 15:59 BP 119/65 08/14/24 15:59 BMI result Body Mass Index 33.2 Const General: cooperative and no acute distress Nutritional Appearance: well nourished Orientation/consciousness: patient oriented x3 Limitations: no limitations HEENT Head: Yes normocephalic and Yes atraumatic Ears: hearing grossly normal bilaterally Chest Other: Mild fibrocystic changes noted bilaterally with no discrete mass Left breast: No skin change, no nipple retraction, no nipple discharge, no palpable mass, no enlarged lymph nodes. Right breast: No skin change, no nipple retraction, no nipple discharge, no palpable mass, no enlarged lymph nodes Resp Effort & Inspection: normal respiratory effort, no audible wheezes, no cough and no respiratory distress Cardio Jugular venous distension: no JVD GI Inspection: Yes normal to inspection Skin Other: Warm, dry, no rash Neuro General: patient oriented x3 Extrem General: Yes no clubbing, cyanosis or edema Assessment & Plan Assessment & Plan (1) BRCA2 gene mutation positive: Code(s): Z15.01 - Genetic susceptibility to malignant neoplasm of breast; Z15.09 - Genetic susceptibility to other malignant neoplasm Category: Medical (2) At high risk for breast cancer: Code(s): Z91.89 - Other specified personal risk factors, not elsewhere classified Category: Medical (3) Family history of breast cancer: Code(s): Z80.3 - Family history of malignant neoplasm of breast Category: Medical Plan 28-year-old female patient with a known BRCA2 genetic mutation and strong family history of breast cancer including her mother who developed breast cancer in her 40s. We previously discussed surgical options for risk reduction including bilateral mastectomy with and without immediate reconstruction. She has previously discussed oophorectomy with Dr. Escudero. Options include very close observation with frequent breast examination, self examination, breast MRI and mammography verses prophylactic surgery. Examination today revealed no suspicious findings in either breast. She wishes to hold off on the surgical option for now but understands when she has completed her family, prophylactic mastectomy is highly recommended. She is now with her 1st child and due in 12/08/2024. We will hold off on mammogram but request MRI and ultrasound as an alternative. Following her delivery she will continue with her high risk screening with mammogram and MRI. I recommended follow-up examination in 6 months, sooner p.r.n.. Orders: Orders US breast RT complete 08/14/24 Z15.01 - Genetic susceptibility to malignant karli plasm of breast, Z15.09 - Genetic susceptibility to other malignant neoplasm, Z80.3 - Family history of malignant neoplasm of breast, Z91.89 - Other specified personal risk factors, not elsewhere classified US breast LT complete 08/14/24 Z15.01 - Genetic susceptibility to malignant neoplasm of breast, Z15.09 - Genetic susceptibility to other malignant neoplasm, Z80.3 - Family history of malignant neoplasm of breast, Z91.89 - Other specified personal risk factors, not elsewhere classified MR breast BI wo/w con 08/14/24 Z15.01 - Genetic susceptibility to malignant neoplasm of breast, Z15.09 - Genetic susceptibility to other malignant neoplasm, Z80.3 - Family history of malignant neoplasm of breast, Z91.89 - Other specified personal risk factors, not elsewhere classified Coding Level of Care Code Est Pt Level 3 (24557) Diagnoses BRCA2 gene mutation positive Z15.01; Z15.09 At high risk for breast cancer Z91.89 Family history of breast cancer Z80.3
[2024-08-14 15:59] VITALS: BP 119/65; PULSE 86; BMI 33.2
== END 2024-08-14 16:10 | disposition home or self-care (01) ==
PROVIDERS: PCP Nurse Practitioner Primary Care; Visit Provider Surgery
DX: Z15.01 Genetic susceptibility to malignant neoplasm of breast (principal); Z15.09 Genetic susceptibility to other malignant neoplasm; Z91.89 Other specified personal risk factors, not elsewhere classified; Z80.3 Family history of malignant neoplasm of breast
CPT/HCPCS: 99213

== ENCOUNTER → 2024-08-14 15:42 | Outpatient (BNVA) | payer OTHER, SELFPAY | PROVIDERS: PCP Nurse Practitioner Primary Care; Visit Provider Surgery ==

== ENCOUNTER 2024-09-08 16:31 | Outpatient (REF) | payer OTHER, SELFPAY ==
[2024-09-08 17:43] LABS: Free T4 (Free Thyroxine) 0.92 ng/dL (0.71-1.85)
[2024-09-09 17:33] LABS: Triiodothyronine T3 Free 2.9 pg/mL (2.3-4.2)
== END 2024-09-08 16:32 | disposition home or self-care (01) ==
LOC: HO.LABR 16:31
PROVIDERS: Visit Provider Internal Medicine Endocrinology, Diabetes & Metabolism
DX: E03.9 Hypothyroidism, unspecified (principal)
CPT/HCPCS: 36415; 84439; 84443; 84481

== ENCOUNTER 2024-10-06 16:30 | Outpatient (REF) | payer OTHER, SELFPAY ==
[2024-10-06 18:03] LABS: Thyroid Stimulating Hormone 3.32 uIU/mL (0.32-4.0)
[2024-10-06 18:30] LABS: T4 Thyroxine 9.4 ug/dL (4.5-12.0)
[2024-10-07 08:28] LABS: Triiodothyronine T3 Free 2.7 pg/mL (2.3-4.2)
== END 2024-10-06 16:31 | disposition home or self-care (01) ==
LOC: HO.LABR 16:30
PROVIDERS: Visit Provider Internal Medicine Endocrinology, Diabetes & Metabolism
DX: E03.9 Hypothyroidism, unspecified (principal)
CPT/HCPCS: 36415; 84436; 84443; 84481

== ENCOUNTER 2025-01-06 15:14 | Outpatient (REF) | payer OTHER, SELFPAY ==
[2025-01-06 16:53] LABS: Free T4 (Free Thyroxine) 1.19 ng/dL (0.71-1.85); Thyroid Stimulating Hormone 0.24 uIU/mL (0.32-4.0)
[2025-01-07 07:44] LABS: Triiodothyronine T3 Free 3.1 pg/mL (2.3-4.2)
== END 2025-01-06 15:15 | disposition home or self-care (01) ==
LOC: HO.LABR 15:14
PROVIDERS: Visit Provider Internal Medicine Endocrinology, Diabetes & Metabolism
DX: E03.9 Hypothyroidism, unspecified (principal)
CPT/HCPCS: 36415; 84439; 84443; 84481

== ENCOUNTER 2025-01-19 09:03 | Outpatient (REF) | payer OTHER, SELFPAY ==
--- NOTE | ~2025-01-19 | MR_ITS ---
EXAMINATION: MR BREAST WITHOUT AND WITH CONTRAST, BILATERAL CLINICAL INFORMATION: High risk screening BRCA2 mutation positive. Mother with premenopausal breast cancer age 45. patient is currently breast-feeding. COMPARISON: Breast MRI August 15, 2023 mammograms July 2023. TECHNIQUE: MR imaging of the breast was performed using T1, T2 and fat saturated techniques. Dynamic multiphase imaging was also performed after administration of intravenous gadolinium contrast agent. Computer generated 3-D reconstruction was performed. FINDINGS: There is extremely dense fibroglandular breast tissue with marked background enhancement. LEFT BREAST: No suspicious enhancing masses or areas of nonmass enhancement. No internal mammary or axillary adenopathy. RIGHT BREAST: No suspicious enhancing masses or areas of nonmass enhancement. No internal mammary or axillary adenopathy. Limited views of the chest and abdomen are unremarkable. MR/MR breast BI wo/w con IMPRESSION: No MRI evidence of malignancy bilateral breasts. There is extremely dense breast tissue with marked background enhancement which limits evaluation of the breast parenchyma. MRI from July 2023 recommended MRI guided core needle biopsy of the left breast however no record of this is in our records.. ASSESSMENT: LEFT BREAST: BI-RADS 1-Negative RIGHT BREAST: BI-RADS 1-Negative RECOMMENDATIONS: Recommend yearly MRI screening surveillance. Electronically signed by: Alanna Vallejo DO 01/20/2025 05:05 PM JILL
[2025-01-19] MEDS: gadobutroL 10 ML VIAL IVPUSH (10:04)
== END 2025-01-19 09:04 | disposition home or self-care (01) ==
LOC: HO.MRI 09:03
PROVIDERS: Visit Provider Surgery
DX: Z91.89 Other specified personal risk factors, not elsewhere classified (principal); Z15.01 Genetic susceptibility to malignant neoplasm of breast; Z15.09 Genetic susceptibility to other malignant neoplasm; Z80.3 Family history of malignant neoplasm of breast
CPT/HCPCS: 77049; A9585

== ENCOUNTER → 2025-01-19 09:09 | Outpatient (BNV) | payer OTHER, SELFPAY | PROVIDERS: Visit Provider Internal Medicine | DX: Z15.01 Genetic susceptibility to malignant neoplasm of breast (principal); Z80.3 Family history of malignant neoplasm of breast | CPT/HCPCS: 77049 ==

== ENCOUNTER 2025-02-17 13:58 | Outpatient (AMB) | payer OTHER, SELFPAY ==
[2025-02-17 14:00] VITALS: BP 127/56; PULSE 75; O2SAT 96; BMI 32.1
--- NOTE | 2025-02-17 14:00 | MHC.OFFVIS ---
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 Patient underwent genetic testing in 2018 and was determined to be BRCA2 positive. She denies any breast symptoms including breast lump, nipple discharge, skin changes or enlarged lymph nodes. She denies a previous history of breast problems or breast surgery. She is now with an estimated delivery date of 12/08/2024. She feels well and denies any ongoing breast symptoms. Her most recent mammogram performed on 08/08/2023 revealed no mammographic evidence of malignancy (BI-RADS 2). MRI performed on 08/15/2023 revealed a suspicious finding in the left breast (BI-RADS 4 left breast), and MR guided core biopsy was performed at [place] on 08/27/2023. 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 Her most recent MRI performed on 01/19/2025 revealed no MR specific evidence of malignancy (BI-RADS 1 bilaterally). She underwent a in October 2024 when she developed eclampsia, approximately 6 weeks premature. Her daughter, Cherise, required several weeks in the NICU but now is doing very well. Marcia at breastfed for a short period of time but has subsequently stopped breast-feeding. [facility] Medical History BRCA gene mutation positive Hypothyroidism Family History Mother Breast cancer, Onset Age: 45 Paternal Grandfather Skin cancer Paternal Aunt Uterus cancer, Onset Age: 19 Paternal Grandmother Skin cancer Social History Household Members: Spouse Housing: House Alcohol intake: current Alcohol intake frequency: holidays/special occasions only Patient Tobacco Use Status: Never used Tobacco e-Cigarette/Vaping Use: Never Used service: No Current occupational status: employed Current occupation: [employer] Sexual orientation: Straight/Heterosexual Gender identity: Female Cognitive needs: No Hearing needs: No Vision needs: No Review of Systems Const All systems reviewed & are unremarkable except as noted in HPI and below Physical Exam Vital Signs: Last Vital Signs Pulse 75 02/17/25 14:00 BP 127/56 L 02/17/25 14:00 Pulse Ox 96 02/17/25 14:00 Oxygen Delivery Method Room Air 02/17/25 14:00 BMI result Body Mass Index 32.1 Const General: cooperative and no acute distress Nutritional Appearance: well nourished Orientation/consciousness: patient oriented x3 Limitations: no limitations HEENT Head: Yes normocephalic and Yes atraumatic Ears: hearing grossly normal bilaterally Chest Other: Mild fibrocystic changes noted bilaterally with no discrete mass Left breast: No skin change, no nipple retraction, no nipple discharge, no palpable mass, no enlarged lymph nodes. Right breast: No skin change, no nipple retraction, no nipple discharge, no palpable mass, no enlarged lymph nodes Resp Effort & Inspection: normal respiratory effort, no audible wheezes, no cough and no respiratory distress Cardio Jugular venous distension: no JVD GI Inspection: Yes normal to inspection Skin Other: Warm, dry, no rash Neuro General: patient oriented x3 Extrem General: Yes no clubbing, cyanosis or edema Assessment & Plan Assessment & Plan (1) BRCA2 gene mutation positive: Code(s): Z15.01 - Genetic susceptibility to malignant neoplasm of breast; Z15.09 - Genetic susceptibility to other malignant neoplasm Category: Medical (2) At high risk for breast cancer: Code(s): Z91.89 - Other specified personal risk factors, not elsewhere classified Category: Medical (3) Family history of breast cancer: Code(s): Z80.3 - Family history of malignant neoplasm of breast Category: Medical Plan 29-year-old female patient with a known BRCA2 genetic mutation and strong family history of breast cancer including her mother who developed breast cancer in her 40s. We previously discussed surgical options for risk reduction including bilateral mastectomy with and without immediate reconstruction. She has previously discussed oophorectomy with Dr. Escudero. Options include very close observation with frequent breast examination, self examination, breast MRI and mammography verses prophylactic surgery. Examination today revealed no suspicious findings in either breast. She wishes to hold off on the surgical option for now but understands when she has completed her family, prophylactic mastectomy is highly recommended. Delivered her 1st child in October 2024 6 weeks premature. Her most recent breast MRI performed on 01/19/2025 revealed no MR specific evidence of malignancy (BI-RADS 1 bilateral). I recommended repeating her mammogram in approximately 6 months. She should return for follow-up examination in approximately 6 months. Medications: Changed From levothyroxine 137 mcg PO DAILY 90 tabs 0RF To levothyroxine 200 mcg PO DAILY Coding Level of Care Code Est Pt Level 3 (54863) Diagnoses BRCA2 gene mutation positive Z15.01; Z15.09 At high risk for breast cancer Z91.89 Family history of breast cancer Z80.3
== END 2025-02-17 14:18 | disposition home or self-care (01) ==
LOC: HO.HGS 13:59
PROVIDERS: Visit Provider Surgery
DX: Z15.01 Genetic susceptibility to malignant neoplasm of breast (principal); Z15.09 Genetic susceptibility to other malignant neoplasm; Z91.89 Other specified personal risk factors, not elsewhere classified; Z80.3 Family history of malignant neoplasm of breast
CPT/HCPCS: 99213

== ENCOUNTER → 2025-06-08 08:00 | Outpatient (BNV) | payer OTHER, SELFPAY | PROVIDERS: PCP Physician Assistant; Visit Provider Internal Medicine | DX: R92.8 Other abnormal and inconclusive findings on diagnostic imaging of breast (principal); Z33.1 Pregnant state, incidental | CPT/HCPCS: 76641 ==

== ENCOUNTER 2025-06-08 09:13 | Outpatient (REF) | payer OTHER, SELFPAY ==
--- NOTE | ~2025-06-08 | US_ITS ---
EXAMINATION: US SCREENING ULTRASOUND BREAST, BILATERAL CLINICAL INFORMATION: Dense breasts on mammography. Screening ultrasound. High risk strong family history including patient's mother. Patient is 5 weeks . COMPARISON: [facility] on PACS. TECHNIQUE: Ultrasound is performed using grayscale imaging and color Doppler. Imaging is performed to include the four quadrants and retroareolar region. Both breasts are imaged. FINDINGS: Right breast: There is no suspicious finding by ultrasound. There is no solid mass or focal architectural abnormality. Left breast: There is no suspicious finding by ultrasound. There is no solid mass or focal architectural abnormality. US/US breast BI complete IMPRESSION: No suspicious findings on screening breast ultrasound. ASSESSMENT: BI-RADS 1 - Negative RECOMMENDATION: 1 year F/U Electronically signed by: Alanna Vallejo DO 06/08/2025 10:31 AM EDT
== END 2025-06-08 09:14 | disposition home or self-care (01) ==
LOC: HO.MAMMO 09:13
PROVIDERS: PCP Physician Assistant; Visit Provider Surgery
DX: Z91.09 Other allergy status, other than to drugs and biological substances (principal); Z80.3 Family history of malignant neoplasm of breast; Z15.01 Genetic susceptibility to malignant neoplasm of breast; Z15.09 Genetic susceptibility to other malignant neoplasm
CPT/HCPCS: 76641

== ENCOUNTER 2025-06-25 22:24 | Emergency (ER) | payer OTHER, SELFPAY ==
--- NOTE | ~2025-06-25 | US_ITS ---
CLINICAL HISTORY: vaginal bleeding US OB 1st trimester transabdominal Comparison: None provided Findings: Single intrauterine . CRL: 15.5 mm. EGA: 8 weeks, 0 days. CHANO: February 04, 2026. Previously established gestational age: 8 weeks, 0 days. Normal yolk sac . Cardiac activity: 167 bpm. Small subchorionic bleed by gestational sac. Bilateral adnexa not clearly visualized. IMPRESSION: Single intrauterine estimated 8 weeks, 0 days gestational age by today's ultrasound criteria. Small subchorionic bleed by gestational sac. This document has been electronically signed by: Nando Mann MD on 06/25/2025 23:49:44
[2025-06-25 22:31] VITALS: BP 118/66; PULSE 94; RESP 16; TEMP 37.2; O2SAT 100; BMI 32.3
[2025-06-25 22:57] LABS: MANUAL DIFF FLAG NO
[2025-06-25 23:03] LABS: Appearance Urine Cloudy; Glucose Urine UA Negative (Negative); PH 5.5 (5.0-9.0); Specific Gravity - Urine 1.020 (1.005-1.025); UMIC TRIGGER UACC YES
[2025-06-25 23:04] LABS: Hematocrit 34.8 % (37.0-47.0); Hemoglobin 11.8 g/dl (12.0-16.0); Imm Gran Abs Auto 0.02 X10*3/uL (0.00-0.03); Imm Gran Pct Auto 0.2 % (0.0-0.4); Lymphocytes Absolute Auto 2.0 X10*3/uL (1.2-4.9); Mean Corpuscular HGB Conc 33.9 g/dl (31.0-35.0); Mean Corpuscular Hemoglobin 27.9 pg (27.0-33.0); Mean Corpuscular Volume 82.3 fL (80.0-98.0); NRBC Abs Auto 0.000 X10*3/uL (0.0-0.012); NRBC Pct Auto 0.0 /100WBC (0.0-0.2); Platelet Count 221 X10*3/uL (160-400); Red Blood Count 4.23 X10*6/uL (4.20-5.50); White Blood Count 9.1 X10*3/uL (4.8-10.8)
[2025-06-25 23:14] LABS: UACC Culture Trigger YES
[2025-06-25 23:19] LABS: Alanine Aminotransferase 16 U/L (0-31); Albumin Level 4.2 g/dL (3.5-5.0); Alkaline Phosphatase 75 U/L (39-117); Anion Gap 11 (12-20); Aspartate Amino Transferase 20 U/L (5-31); Blood Urea Nitrogen 11 mg/dL (9-16); Calcium 8.7 mg/dL (8.4-10.2); Carbon Dioxide 25 mmol/L (22-29); Chloride 107 mmol/L (96-108); Creatinine Clr Calc Pharmacy 168.0; Estimated Glomerular Filt Rate > 60; Potassium 4.2 mmol/L (3.3-5.1); Sodium 139 mmol/L (135-145); Total Protein 6.8 g/dL (6.5-8.0)
== END 2025-06-26 00:22 | disposition left against medical advice (07) ==
PROVIDERS: Emergency Provider Emergency Medicine; PCP Physician Assistant
DX: O20.9 Hemorrhage in early pregnancy, unspecified (principal); Z3A.08 8 weeks gestation of pregnancy; Z53.21 Procedure and treatment not carried out due to patient leaving prior to being seen by health care provider
CPT/HCPCS: 36415; 76801; 80053; 81001; 81003; 84702; 85025; 87086; 99281; 99282

== ENCOUNTER → 2025-06-25 22:51 | Outpatient (BNV) | payer OTHER, SELFPAY | PROVIDERS: Emergency Provider Emergency Medicine; PCP Physician Assistant; Visit Provider Student in an Organized Health Care Education/Training Program | DX: O20.9 Hemorrhage in early pregnancy, unspecified (principal); Z3A.08 8 weeks gestation of pregnancy | CPT/HCPCS: 76801 ==

== ENCOUNTER 2025-09-29 12:51 | Outpatient (AMB) | payer OTHER, SELFPAY ==
[2025-09-29 12:54] VITALS: BP 98/62; PULSE 96; RESP 18; TEMP 36.2; O2SAT 98; BMI 33.3
--- NOTE | 2025-09-29 12:54 | MHC.PC.OV ---
Vital Signs 09/29/25 12:54 Height 5 ft 10 in Weight 232 lb 2 oz BMI 33.3 BP 98/62 Blood Pressure Location Lt brachial Position Sitting Respiration 18 Pulse 96 Pulse Source Pulse Oximeter Temp 97.1 F Temp Source Temporal Artery Scan Pulse Oximetry (%) 98 Oxygen Delivery Method Room Air Intake Visit Reasons: L[facility] IN [employer] [employer] Required: No Accompanied by: Self / Same As Patient Allergies No Known Allergies Allergy (Verified 09/29/25 13:12) Medication List - Last Reconciled 09/29/25 by TAZ Cooper aspirin 81 mg PO BID levothyroxine 200 mcg PO DAILY Tobacco use date assessed: 09/29/25 Dental Screening Dental Screen Date: 09/29/25 Did you have a dental visit in the last 12 months?: No Did you have a dental problem in the last 6 months where you did not have access to dental care?: No Was dental information given to patient?: Patient has dentist HPI L[facility] IN [employer] [facility] HPI Details Previous PCP: LASHAY garber Last visit: Over a year ago Last PE: same Specialist: endocrinology in [facility], Pavel Albarran OBGYN: WILLAM pinto Past medical history: hypothyroidism, 10/2024, with daughter, positive brac2 gene, mother had breast cancer, breast biopsy in 2022 negative, presclampsia, currently and is due in January Medications: Family HX: DM, brother type 1, he was diagnosed in his late 30s, suspected to related to covid-19, and aunt type2, paternal aunt urterine ca, mother breast cancer, hx of skin ca, suspected to be on the paternal side. She does not know a lot about her mother's side of the family. Problem: No concerns, establishing care The patient is a 29-year-old female presenting to establish care with a new primary care provider as her previous PCP left the practice over a year ago. The patient has a history of hypothyroidism and is followed by an business machines teacher, Dr. Albarran, whom she sees once a year. She undergoes lab work twice a year or as needed, with increased frequency during . Both of her siblings also have hypothyroidism. The patient is currently 22 weeks and is due in January. She has a history of one prior section and is currently taking aspirin twice daily for preeclampsia prophylaxis. The patient is positive for the BRCA2 gene mutation. This testing was prompted by her mother's history of breast cancer. A breast biopsy performed in August 2023 was negative. Her family history is significant for a brother with type 1 diabetes diagnosed in his late 30s, an aunt with type 2 diabetes, a paternal aunt with uterine cancer, and a history of skin cancer in the family. [facility] Medical History (Updated 09/30/25 @ 05:06 by TAZ Cooper) BRCA gene mutation positive Hypothyroidism Family History Mother Breast cancer, Onset Age: 45 Paternal Grandfather Skin cancer Paternal Aunt Uterus cancer, Onset Age: 19 Paternal Grandmother Skin cancer Social History Household Members: Spouse Housing: House Alcohol intake: current Alcohol intake frequency: holidays/special occasions only Patient Tobacco Use Status: Never used Tobacco e-Cigarette/Vaping Use: Never Used service: No Current occupational status: employed Current occupation: [employer] Sexual orientation: Straight/Heterosexual Gender identity: Female Cognitive needs: No Hearing needs: No Vision needs: No Questionnaire PHQ-9 Over the last 2 weeks, how often have you been bothered by any of the following problems? 1. Little interest or pleasure in doing things: not at all 2. Feeling down, depressed, or hopeless: several days 3. Trouble falling or staying asleep, or sleeping too much: not at all 4. Feeling tired or having little energy: several days 5. Poor appetite or overeating: not at all 6. Feeling bad about yourself - or that you are a failure or have let yourself or your family down: several days 7. Trouble concentrating on things, such as reading the newspaper or watching television: not at all 8. Moving or speaking so slowly that other people could have noticed. Or the opposite - being so fidgety or restless that you have been moving around a lot more than usual: not at all 9. Thoughts that you would be better off or of hurting yourself in some way: not at all Total score: 3 Depression Screening Interpretation: Negative Depression Screening Done: Yes 24676 - PHQ-9 Billing: Yes Source: Developed by Drs. Jack Donnelly, Jeanette Maier, Keenan Dotson and colleagues, with an educational kathi from [employer]. Thrive Questionnaire Date Thrive assessed: 09/29/25 I am a: Patient What is your living situation today?: I have a steady place to live Within the past 12 months, did the food you bought not last and you didn't have the money to get more?: Never true Within the past 12 months, did you worry whether your food would run out before you got money to buy more?: Never true Do you have trouble paying for medicines?: No Do you have trouble getting transportation to medical appointments?: No Do you have trouble paying your heating and electricity bill?: No Do you have trouble taking care of your child, family member or friend?: No Do you have trouble with day-to-day activities such as bathing, preparing meals, shopping, managing finances, etc.?: No Are you currently unemployed and looking for a job?: No Are you interested in more education?: No Please select the resources that you would like help with: None Currently or been in a relationship where the following occur: No concerns reported THRIVE Score: 0 AUDIT C Alcohol Use Questionnaire (AUDIT-C) 1. How often do you have a drink containing alcohol?: Monthly or less 2. How many drinks containing alcohol do you have on a typical day when you are drinking?: 1 or 2 3. How often do you have six or more drinks on one occasion?: Never Total Score: 1 OSEAS-7 AMB Questionnaire OSEAS-7 Date OSEAS - 7 assessed: 09/29/25 Feeling nervous, anxious, or on edge: 1 = Several days Not being able to stop or control worryin = Several days Worrying too much about different things: 1 = Several days Trouble relaxin = More than half the days Being so restless that it is hard to sit still: 0 = Not at all Becoming easily annoyed or irritable: 1 = Several days Feeling afraid as if something awful might happen: 0 = Not at all Total OSEAS-7 score (0-4 normal; 5-9 mild; 10-14 moderate; 15-21 severe): 6 Source: Developed by Drs. Jack Donnelly, Keenan Green Kroenke and colleagues, with an educational kathi from [employer]. OSEAS-7 Assessment Billing OSEAS-7 Assessment Tool: OSEAS-7 Assessment 79359 Review of Systems Const Denies headache(s) Eyes Denies loss of vision ENT Denies vertigo, Denies dizziness, Denies headache(s) and Denies sore throat Card Denies chest pain, Denies leg edema and Denies lightheadedness Resp Denies cough, Denies hemoptysis and Denies wheezing GI Denies abdominal pain, Denies melena, Denies constipation, Denies diarrhea and Denies vomiting Denies urinary frequency, Denies dysuria and Denies urinary urgency Musc Denies arthralgias, Denies joint swelling, Denies numbness and Denies tingling Neuro Denies Abnormal speech present, Denies behavioral changes, Denies vertigo, Denies dizziness, Denies headache(s), Denies loss of vision, Denies memory loss, Denies numbness and Denies tingling Psych Denies anxiety, Denies behavioral changes, Denies depression, Denies memory loss and Denies panic attacks Corey/Lymph Denies easy bleeding and Denies easy bruising Aller/Immun Denies wheezing Physical exam (Primary Care) Vital Signs: Last Vital Signs Temp 97.1 F 09/29/25 12:54 Pulse 96 09/29/25 12:54 Resp 18 09/29/25 12:54 BP 98/62 09/29/25 12:54 Pulse Ox 98 09/29/25 12:54 Oxygen Delivery Method Room Air 09/29/25 12:54 BMI result Body Mass Index 33.3 Tobacco/Smoking Status: Tobacco use Status Tobacco use date assessed 09/29/25 09/29/25 13:03 Patient Tobacco Use Status Never used Tobacco 09/29/25 13:03 e-Cigarette/Vaping Use Never Used 09/29/25 13:03 PHQ-9: PHQ-9 Score PHQ-9: Total score 3 09/29/25 13:14 Depression Screening Interpretation: Negative Thrive Assessment: Date of Thrive Assessment Date Thrive assessed 09/29/25 09/29/25 13:03 Currently or been in a relationship where the following occur: No concerns reported Const General: healthy appearing, no acute distress, alert and awake Nutritional Appearance: well nourished Orientation/consciousness: oriented to person, oriented to place and oriented to time HENMT Ears: TM's normal bilaterally General nose exam: Normal nasal mucous membranes and turbinates present Eyes Conjunctivae: conjunctivae normal Sclerae: sclerae normal Pupils: Equal, round and reactive pupils present Neck Neck: Yes no lymphadenopathy and Yes no JVD Thyroid: Thyroid normal Carotids: no bruits Resp Effort & Inspection: normal respiratory effort and not tachypneic Auscultation: no crackles, no rales, no rhonchi and no wheezes Cardio Rate: regular rate Rhythm: regular rhythm Heart sounds: no murmurs and normal S1 and S2 GI Palpation (GI): Soft to palpation, nontender, no hepatomegaly and no splenomegaly Auscultation: normal bowel sounds Skin General skin exam: no rashes or lesions noted and dry skin Neuro General: oriented to person, oriented to place and oriented to time Cranial nerves: Yes Equal, round and reactive pupils present Speech: No Abnormal speech present Gait exam (Neuro): Normal gait present Motor exam (neuro): no tremor noted Extrem Right upper extremity: full ROM Left upper extremity: full ROM Right lower extremity: full ROM; no edema Left lower extremity: full ROM; no edema Psych Mental Status: mental status grossly normal Speech and movement: Normal speech and movement present Affect: normal affect Attitude: cooperative Thought process: Normal thought process present Coding Level of Care Code New Pt Level 3 (54621) Diagnoses Hypothyroidism, unspecified type E03.9 Hypothyroidism type: unspecified and not yet delivered in second trimester Z34.92 BRCA2 gene mutation positive Z15.01; Z15.09 Additional Codes PHQ-9 - 10202 - PHQ-9 Billing: Yes ([id number]) OSEAS-7 Assessment Billing - OSEAS-7 Assessment Tool: OSEAS-7 Assessment 96051 ([id number]) Time Spent (min) 31 Assessment & Plan Assessment & Plan (1) Hypothyroidism: Code(s): E03.9 - Hypothyroidism, unspecified Category: Medical Qualifiers: Hypothyroidism type: unspecified Qualified Code(s): E03.9 - Hypothyroidism, unspecified Plan: The patient's hypothyroidism is co-managed with her business machines teacher. She is to continue her medication, levothyroxine 200 mcg, with dose adjustments managed by her specialist, especially during . Medication refills can be provided from this office, but the patient is advised to confirm the current recommended dosage with her business machines teacher beforehand. (2) and not yet delivered in second trimester: Code(s): Z34.92 - Encounter for supervision of normal , unspecified, second trimester Category: Medical Plan: The patient is 22 weeks and receives care from an EDITORIAL ASSISTANT. She is taking aspirin BID for preeclampsia prophylaxis. Care will continue to be coordinated with her specialty providers. (3) BRCA2 gene mutation positive: Code(s): Z15.01 - Genetic susceptibility to malignant neoplasm of breast; Z15.09 - Genetic susceptibility to other malignant neoplasm Category: Medical Plan: The patient's status as a BRCA2 gene mutation carrier was noted. Her history of a negative breast biopsy in August 2023 was also reviewed. No new interventions regarding this status were planned during this visit; she will continue with appropriate high-risk surveillance. Plan Patient to return in six-month for annual physical Orders: Orders Comprehensive Boyd. Panel Fast 6 Months E03.9 - Hypothyroidism, unspecified, F32.A - Depression, unspecified, F41.9 - Anxiety disorder, unspecified, Z00.00 - Encounter for general adult medical examination without abnormal findings, Z15.01 - Genetic susceptibility to malignant neoplasm of breast, Z15.09 - Genetic susceptibility to other malignant neoplasm UA CC w/rflx Micro + Cult 6 Months E03.9 - Hypothyroidism, unspecified, F32.A - Depression, unspecified, F41.9 - Anxiety disorder, unspecified, Z00.00 - Encounter for general adult medical examination without abnormal findings, Z15.01 - Genetic susceptibility to malignant neoplasm of breast, Z15.09 - Genetic susceptibility to other malignant neoplasm TSH reflex Free T4 6 Months E03.9 - Hypothyroidism, unspecified, F32.A - Depression, unspecified, F41.9 - Anxiety disorder, unspecified, Z00.00 - Encounter for general adult medical examination without abnormal findings, Z15.01 - Genetic susceptibility to malignant neoplasm of breast, Z15.09 - Genetic susceptibility to other malignant neoplasm Hemoglobin A1c 6 Months E03.9 - Hypothyroidism, unspecified, F32.A - Depression, unspecified, F41.9 - Anxiety disorder, unspecified, Z00.00 - Encounter for general adult medical examination without abnormal findings, Z15.01 - Genetic susceptibility to malignant neoplasm of breast, Z15.09 - Genetic susceptibility to other malignant neoplasm Vitamin D 25-OH Total 6 Months E03.9 - Hypothyroidism, unspecified, F32.A - Depression, unspecified, F41.9 - Anxiety disorder, unspecified, Z00.00 - Encounter for general adult medical examination without abnormal findings, Z15.01 - Genetic susceptibility to malignant neoplasm of breast, Z15.09 - Genetic susceptibility to other malignant neoplasm Complete Blood Count Auto Diff 6 Months E03.9 - Hypothyroidism, unspecified, F32.A - Depression, unspecified, F41.9 - Anxiety disorder, unspecified, Z00.00 - Encounter for general adult medical examination without abnormal findings, Z15.01 - Genetic susceptibility to malignant neoplasm of breast, Z15.09 - Genetic susceptibility to other malignant neoplasm Lipid Panel 6 Months E03.9 - Hypothyroidism, unspecified, F32.A - Depression, unspecified, F41.9 - Anxiety disorder, unspecified, Z00.00 - Encounter for general adult medical examination without abnormal findings, Z15.01 - Genetic susceptibility to malignant neoplasm of breast, Z15.09 - Genetic susceptibility to other malignant neoplasm Free T4 (Free Thyroxine) 6 Months E03.9 - Hypothyroidism, unspecified, F32.A - Depression, unspecified, F41.9 - Anxiety disorder, unspecified, Z00.00 - Encounter for general adult medical examination without abnormal findings, Z15.01 - Genetic susceptibility to malignant neoplasm of breast, Z15.09 - Genetic susceptibility to other malignant neoplasm
--- OUTSIDE RECORDS SUMMARY | 2025-09-29 14:35 | XMS_ITS | Data Portability ---
Author Organization [place] [facility], [facility] Address [address] [facility] [address] [place] [address] Care Team Providers Care Welfare Centre Manager Name Role Phone DK SCHILLING Primary Care Provider Assessment No assessment recorded. Plan of Treatment Reminders Order Date Submit Date Provider Last Modified By Organization Details Last Modified Time Details Appointments None recorded. Lab pap, LB + HPV 2018 019 [facility], [address] [place], [address] 9 22:31:12 urinalysis, dipstick 2018 019 In-Office Order, Internal Use Only DO Not Attach Compendium DO Not Attach Compendium, Do Not Delete/merge, [id number] 15:36:41 culture, urine 2018 019 [facility], [address] [place], [address] 9 09:00:06 urinalysis, complete 2018 019 [facility], [address] [place], [address] 9 09:00:05 urinalysis, dipstick 2016 017 [email or web address] In-Office Order, Internal Use Only DO Not Attach Compendium DO Not Attach Compendium, Do Not Delete/merge, [id number] 11:06:25 CT + NG DNA, PCR, unspecified specimen 2016 017 [facility], [address] [place], [address] 7 14:19:21 Referral None recorded. Procedures None recorded. Surgeries None recorded. Imaging None recorded. Medication Orders Lo Loestrin Fe 1 mg-10 mcg (24)/10 mcg (2) tablet 2016 017 [id number], [address] , [place], [address], 9 12:39:01 Patient TargetsNo targets recorded. Patient Instructions Encounter Date Encounter Id Patient Instructions Last Modified By Organization Details Last Modified Time 11/07/2017 [id number] tips to help you stay healthy Not available 11/07/2017 14:58:32 05/16/2019 [id number] tips to help you stay healthy Not available 05/16/2019 15:35:15 07/17/2019 [id number] intrauterine device (IUD) insertion: care instructions [email or web address] Not available 07/17/2019 14:28:24 Reason for Referral None Reported. Results Created Date Observation Date Name Description Value Unit Range Abnormal Flag Note LastModifiedBy Organization Detail LastModifiedTime 11/07/20 17 11/07/2017 urina lysis , dipst ick Interpretati on negati ve Not Available In-Office Order Internal Use Only DO Not Attach Compendium DO Not Attach Compendium, Do Not Delete/merge, [id number] 11/07/2017 10:23:23 11/07/20 17 11/08/2017 CT + NG DNA, PCR, unspe cifie d speci men source Unspec ified Urine Not Available [facility] [address] [place], [address] 11/08/2017 14:19:21 11/07/20 17 11/08/2017 CT + NG DNA, PCR, unspe cifie d speci men chlamydia by DNA Negati ve negati ve Not Available [facility] [address] [place], [address] 11/08/2017 14:19:21 11/07/20 17 11/08/2017 CT + NG DNA, PCR, unspe cifie d speci men GC by DNA Negati ve negati ve Not FDA appro mark for GC/Ch lamyd ia in femal e urine speci mens. Test valid ated by CT for detec ting GC/Ch lamyd ia from this sourc e. Not Available [facility] [address] [place], [address] 11/08/2017 14:19:21 05/16/20 19 05/18/2019 urina lysis , compl ete color DARK YELLOW yellow Not Available [facility] [address] [place], [address] 05/18/2019 09:00:05 05/16/2005/18/2019 urina lysis , compl ete appearance CLOUDY clear abnormal Not Available [facility] [place] [address] [place], [address] 05/18/2019 09:00:05 05/16/2005/18/2019 urina lysis , compl ete specific gravity 1.025 1.001- 1.035 Not Available [facility] [address] [place], [address] 05/18/2019 09:00:05 05/16/2005/18/2019 urina lysis , compl ete pH 6.0 5.0-8. 0 Not Available [facility] [address] [place], [address] 05/18/2019 09:00:05 05/16/2005/18/2019 urina lysis , compl ete leukocyte esterase NEGATI VE negati ve Not Available [facility] [address] [place], [address] 05/18/2019 09:00:05 05/16/2005/18/2019 urina lysis , compl ete nitrite NEGATI VE negati ve Not Available [facility] [address] [place], [address] 05/18/2019 09:00:05 05/16/2005/18/2019 urina lysis , compl ete protein NEGATI VE negati ve Not Available [facility] [address] [place], [address] 05/18/2019 09:00:05 05/16/20 19 05/18/2019 urina lysis , compl ete glucose NEGATI VE negati ve Not Available [facility] [address] [place], [address] 05/18/2019 09:00:05 05/16/2005/18/2019 urina lysis , compl ete ketone NEGATI VE negati ve Not Available [facility] [address], [place], 05/18/2019 09:00:05 05/16/2005/18/2019 urina lysis , compl ete bilirubin NEGATI VE negati ve Not Available [facility] [address] [place], [address] 05/18/2019 09:00:05 05/16/2005/18/2019 urina lysis , compl ete WBC NONE SEEN /hpf < or = 5 Not Available [facility] [address] [place], [address] 05/18/2019 09:00:05 05/16/2005/18/2019 urina lysis , compl ete RBC 3-10 /hpf < or = 2 abnormal Not Available [facility] [address] [place], [address] 05/18/2019 09:00:05 05/16/2005/18/2019 urina lysis , compl ete bacteria NONE SEEN /hpf none seen Not Available [facility] [address] [place], [address] 05/18/2019 09:00:05 05/16/2005/18/2019 urina lysis , compl ete squamous epithelial cells 20-40 /hpf < or = 5 abnormal Not Available [facility] [address] [place], [address] 05/18/2019 09:00:05 05/16/2005/18/2019 urina lysis , compl ete hyaline casts 0-5 /lpf none seen abnormal Not Available [facility] [address] [place], [address] 05/18/2019 09:00:05 05/16/2005/18/2019 urina lysis , compl ete occult blood 3+ negati ve abnormal Not Available [facility] [address] [place], [address] 05/18/2019 09:00:05 05/16/2005/18/2019 cultu re, urine source Unspec ified Urine Not Available [facility] [address] [place], [address] 05/18/2019 09:00:06 05/16/20 19 05/18/2019 cultu re, urine culture abnormal Multi ple bacte rial morph otype s 10,00 0 colon ies/m L prese nt. No furth er ident ifica tion will be perfo rmed. Not Available [facility] [address] [place], [address] 05/18/2019 09:00:06 05/16/20 19 05/18/2019 cultu re, urine status FINAL 05/18 Not Available [facility] [address] [place], [address] 05/18/2019 09:00:06 05/16/20 19 05/19/2019 pap, LB + HPV report GYNEC OLOGI KATEY CYTOL OGY VANDANA T Cruz. THINP REP PAP TEST WITH HPV REFLE X AND GC/CH LAMYD IA: SPECI MEN ADEQU ACY: SATIS FACTO RY FOR EVALU ATION ; ENDOC ERVIC AL/TR ANSFO RMATI ON ZONE COMPO NENT PRESE NT. INTER PRETA TION: NEGAT COLBY FOR INTRA EPITH ELIAL LESIO N OR PASTORA HUYNH . Elect brooke howell Joan d Out By: [facility] IN [place], [place]( [place]) CLINI KATEY INFOR MATIO N: LMP: NI Z01.4 19 Z11.3 Biops y Date: NI Numbe r of vials /slid es submi tted: 1 Speci men sourc e: CERVI X/END OCERV IX Abnor mal Pap Date: NI Autom ated presc reeni ng of all liqui d based speci mens is perfo rmed by the ThinP rep Imagi ng Syste msorenes s other [place] d. The Pap test is a scree trevor test with an inher ent false negat colby rate. Testi ng [facility] at [facility] , [address] [place] [address] CLIA [id number] CL-08 85. Not Available [facility] [address] [place], [address] 05/19/2019 22:31:12 05/16/20 19 05/19/2019 CT + NG DNA, PCR, unspe cifie d speci men source Infor jael n not given Not Available [facility] [address] [place], [address] 05/19/2019 22:31:13 05/16/20 19 05/19/2019 CT + NG DNA, PCR, unspe cifie d speci men chlamydia by DNA Negati ve negati ve Not Available [facility] [address] [place], [address] 05/19/2019 22:31:13 05/16/20 19 05/19/2019 CT + NG DNA, PCR, unspe cifie d speci men GC by DNA Negati ve negati ve Not Available [facility] [address] [place], [address] 05/19/2019 22:31:13 05/16/20 19 05/16/2019 urina lysis , dipst ick Interpretati on positi ve Not Available In-Office Order Internal Use Only DO Not Attach Compendium DO Not Attach Compendium, Do Not Delete/merge, [id number] 05/16/2019 15:01:30 05/16/2005/16/2019 urina lysis , dipst ick Leukocytes Negati ve Not Available In-Office Order Internal Use Only DO Not Attach Compendium DO Not Attach Compendium, Do Not Delete/merge, [id number] 05/16/2019 15:01:30 05/16/2005/16/2019 urina lysis , dipst ick Nitrite negati ve Not Available In-Office Order Internal Use Only DO Not Attach Compendium DO Not Attach Compendium, Do Not Delete/merge, [id number] 05/16/2019 15:01:30 05/16/2005/16/2019 urina lysis , dipst ick Blood Large: +3 Not Available In-Office Order Internal Use Only DO Not Attach Compendium DO Not Attach Compendium, Do Not Delete/merge, [id number] 05/16/2019 15:01:30 Result Notes None recorded. Problems Name Problem SNOMED Code Status Onset Date Resolution Date Notes Provider Name and Address Organization Details Recorded Time Hypothyroi dism 65294500 Active 2016 Zahida wharton, [place] [facility] 7 10:15:28 Vitiligo 95916356 Active 2016 Zahida Christensen dio, [facility] 7 10:15:42 BRCA2 gene mutation detected 637550021 Active 201711/05/19 BRCA 2 gene mutation downgrade d to a VUS of uncertain significan ce CH BIPIN NUÑEZ APRN [address] [facility], [address] [place] [address], [address] [place] [address] 4, [facility] 9 11:06:42 Problem Notes None recorded. Procedures Surgical History Date Name Laterality Status Provider Name and Address Organization Details Recorded Time 07/17/2019 IUD Insert completed DULCE CHANDLER DO [address] [facility], [address] [place] [address], [address] [place] [address], [facility] 07/17/2019 14:27:51 05/16/2019 [id number] completed BIPIN NUÑEZ APRN [address] [facility], [address] [place] [address], [address] [place] [address], [facility] 05/16/2019 15:33:59 05/16/2019 [id number]-BTD completed BIPIN NUÑEZ APRN [address] [facility], [address] [place] [address], [address] [place] [address], [facility] 05/16/2019 15:33:57 05/16/2019 Date of Last Pap Smear completed Cat Awad [facility] 05/13/2019 12:55:17 11/07/2017 [id number] completed BIPIN NUÑEZ APRN [address] [facility], [address] [place] [address], [address] [place] [address], [facility] 11/07/2017 11:49:33 11/07/2017 [id number]-JAS completed BIPIN NUÑEZ APRN [address] [facility], [address] [place] [address], [address] [place] [address], [facility] 11/07/2017 11:49:31 Imaging Results None recorded. Procedure Notes None recorded. Medical Equipment None Reported. Allergies No known drug allergies Medications Name Sig Start Date Stop Date Status Note LastModified by Organization Details LastModified Time Mirena 21 mcg/24 hr (up to 8 years) 52 mg intrauterin e device Take by intrauter ine route. 2018 active TU029 P9 exp: 12/10 Not Available Not Available Not Available neomycin-po lymyxin-hyd rocort 3.5 mg/mL-10,00 0 unit/mL-1 % ear solution 05/16 completed Not Available Not Available Not Available azithromyci n 250 mg tablet 11/07 completed Not Available Not Available Not Available prednisone 20 mg tablet 05/15 completed Not Available Not Available Not Available ciprofloxac in 500 mg tablet 05/15 completed Not Available Not Available Not Available levothyroxi ne 125 mcg tablet 11/07 completed Not Available Not Available Not Available misoprostol 200 mcg tablet active Not Available Not Available Not Available levothyroxi ne 150 mcg tablet active Not Available Not Available Not Available hydrocodone -homatropin e 5 mg-1.5 mg/5 mL oral solution 11/07 completed Not Available Not Available Not Available amoxicillin 875 mg-potassiu m clavulanate 125 mg tablet 05/15 completed Not Available Not Available Not Available Lo Loestrin Fe 1 mg-10 mcg (24)/10 mcg (2) tablet Take 1 tablet every day by oral route. 12/26 completed Not Available Not Available Not Available ProAir RespiClick 90 mcg/actuati on breath activated 11/07 completed Not Available Not Available Not Available Blisovi 24 Fe 1 mg-20 mcg (24)/75 mg (4) tablet TAKE 1 TABLET BY MOUTH EVERY DAY 05/16 completed Not Available Not Available Not Available Vitals Date Recorded Body height Body mass index (BMI) Body weight Systolic And Diastolic Provider Name and Address Organization Details Last Updated DateTime 05/16/2019 179.07 cm 22.9 kg/m2 87875.96 g 108/58 mm[Hg] Cat Awad [place] [facility] 05/16/2019 15:07:00 Date Recorded Body height Body mass index (BMI) Body weight Provider Name and Address Organization Details Last Updated DateTime 07/17/2019 179.07 cm 24.8 kg/m2 24241.66 g Connie Isaac [place] - [facility] 07/17/2019 14:01:37 Date Recorded Body weight Body mass index (BMI) Body height Systolic And Diastolic Provider Name and Address Organization Details Last Updated DateTime 11/07/2017 40966.96 g 22.9 kg/m2 179.07 cm 128/68 mm[Hg] Zahida Christensen [place] - [facility] 11/07/2017 10:15:10 Social History Question Answer Notes LastModified by [facility] ion Details LastModified Time Tobacco Smoking Status Never Smoker Zahida Christensen dio, [place] - [facility] 11/07/2017 10:16:00 Education 4 Year College Information not available 05/13/2019 Have There Been Any Changes To Your Family Or Social Situation? No Information not available 05/13/2019 Do You Have Any Children? No Information not available 11/07/2017 Does Your Partner Physically Hurt You Or Threaten To Hurt You? No Information not available 11/07/2017 Has Your Partner Forced You To Have Sex Or Perform Sex Acts When You Did Not Want To? No Information not available 11/07/2017 Does Your Partner Insult, Scream At Or Talk Down To You? No Information not available 11/07/2017 Does Your Partner Control You Or Any Part Of Your Life? No Information not available 11/07/2017 Are You Afraid Of Your Partner? No Information not available 11/07/2017 Drug Use? No Information no t available 11/07/2017 Do You Feel Safe At Home? Yes Information not available 11/07/2017 What Was The Date Of Your Most Recent Tobacco Screening? 05/16/2019 Information not available 06/11/2019 How Many Children Do You Have? 0 Information not available 05/13/2019 Do You Use Protection During Sex? Always Information not available 05/13/2019 How Much Tobacco Do You Smoke? No Information not available 05/13/2019 Sex: Unknown Functional Status Question Answer Note LastModified by [facility] ion Details LastModified Time What is your level of alcohol consumption? None Information not available 11/07/2017 What is your exercise level? Heavy x6 days a week Information not available 11/07/2017 Mental Status Question Answer Note LastModified by Organization D etails LastModified Time Do you have difficulty concentrating, remembering or making decisions? No Information no t available 05/13/2019 Family History Relationship Description Onset Age of this Age Resolved Age Notes LastModified by Organization Details LastModified Time Mother Malignant neoplasm of breast 46 brca positi ve Not available 11/07/2017 11:28:00 Medical History No medical history recorded. Gynecological History Statement/Question Response Benign Breast Disease N Flow Moderate Date of Last Mammogram Breast Biopsy N Date of LMP 05/12/2019 IPV Screen Done 05/16/2019 [facility] Biopsy Post Menopausal Bleeding STIs/STDs N PID N Cervical Cancer N History of Endometrial Biopsy? N If Post Menopausal, Age at Menopause Ovarian Cancer N Date of Last Colonoscopy Breast Cancer N Date of last DEXA Bladder Problems N Abnormal Uterine Bleeding N Abnormal Pap BrCa Positive Y Infertility N Breast Ultrasound N Leep Sexual Orientation heterosexual Colposcopy HPV Vaccine Y Duration of Flow (days) 5 Endometriosis N Age at Menarche 17 Age at First Child Fibroids N Uterine Cancer N Current Control Method Oral Contra ceptives Frequency of Cycle (Q days) 26 Sexually Active? Y Sexual Problems? N Date of Last Pap Smear 05/16/2019 Hormone Replacement Therapy Obstetrics History GPAL:G 0 P 0 0 0 0 Past Encounters Encounter ID Performer Location Encounter Start Date Encounter Closed Date Diagnosis/Indication Diagnosis SNOMED-CT Code Diagnosis ICD10 Code Diagnosis IMO Codes Diagnosis Note [id number] BIPIN NUÑEZ APRN [facility] [address] [place] [address] 11/07/2017 09:44:55 11/08/2017 10:22:13 Venereal disease screening 826118963 Z11.3 Gynecologi c examination 02782648 Z01.419 Well woman exam Rev SBE Pt mom w/hx breast cancer & is BRCA positive Pap deferred/c ultures done Has had Gardasil Using condoms for contracept ion--inter ested in discussing options--p t interested in Nexplanon but is going back to school 11/20/17 Initial pr escription of oral contraception 012589921 Z30.011 Pt interested in contracept ion Reviewed options--i nterested in Nexplanon but is returning to school 11/20/17--no available time to place it Will start OC's for now Reviewed instructio ns/risk & benefits Consent signed Sample given, script given for pt to use at school & script sent to local pharmacy F/up 03/2018 for f/up Family his tory of breast cancer gene mutation in first degree relative 1892119862 83050 Z84.81 Pt mom w/hx breast cancer at age 45 BRCA + Discussed above/pt would like testing Advised we can do single site testing--n eed mother's informatio n Test obtained today [id number] BIPIN NUÑEZ APRN [facility] [address] [place] [address] 05/16/2019 14:53:05 05/20/2019 13:15:45 Gynecologic examination 05211453 Z01.419 Z11.3 Well woman exam Rev SBE Pap/cultur es done Condoms for contracept ion--would like IUD/prefer s Mirena d/t dysmenorrh ea--will schedule insertion; script for Cytotec given Disc diet/exerc ise F/up 1 year/prn Blood in urine 89483519 R31.9 Pt w/hematuri a + blood in vagina Will check UA C&S BRCA2 gene mutation detected 084541165 Z15.01 Pt mother w/hx breast cancer & positive for BRCA 2 gene mutation Pt had MyRisk testing 10/2017 & did not return for consult Discussed pt results--+ BRCA 2--results given to pt Advised pt that she is at increased risk for breast/ova nelly/pancr eatic cancer as well as melanoma Advised that she will need to get establishe d w/breast surgeon--g enerally recommend mammograph y/MRI/US when pt is 27; will need CA125 & US to screen for ovarian cancer when 32 years of age--pt to d/w her mother--ma y get establishe d w/her mother's providers Advised that the recommenda tion is to have bilateral mastectomy & bilateral oophorecto my when done w/childbea ebony Stressed the importance of future f/up b/c she is +BRCA 2 Total visit length 30 minutes of which at least 25 minutes was spent in face to face counseling and coordinati on of care. All questions were answered to the patient's satisfacti on. [id number] DULCE CHANDLER, DO [facility] [address] [facility] [place] [address] 07/17/2019 13:52:41 07/25/2019 11:19:46 Insertion of intrauterine contraceptive device 52672730 Z30.430 Mirena inserted today without complicati ons. Refer to procedure note for details. Reviewed precaution s for next 7 days, including no coitus and no tampons. Call to report fever or pain. Keep followup appointmen t in 6 weeks for USN verificati on of correct placement. Health Concerns Section Related Observation LastModified by Organization Detai ls LastModified Time None Recorded Concern Status LastModified by Organization Details LastModified Time None Recorded Advance Directives Directive None Recorded Payers Insurance Date Sequence Insurance Name Policy Number Policy Bellamy Covered Member ID Bellamy Member ID Guarantor Name 09/01/2019 1 [facility] [id number] Eh Morales [id number] Marcia Morales Notes Date Note Type Note Provider Name and Address Organization Details Recorded Time 11/07/2017 text/html [facility] Annual GYNRe ported by PatientHistoryFor history, patient reportsno gynecologic complaintsandno change in interval history.Genitourinary symptomsFor menstrual cycle, patient reportsnormal menses. For urinary symptoms, patient reportsno hematuriaandno incontinence. For vulva, patient reportsno genital lesion. For vagina, patient reportsnormal vaginal discharge.Breast symptomsFor breast, patient reportsno breast pain,no breast lump, andno nipple discharge.Contraceptio nFor current contraception, patient reportssatisfied with current contraception,monog[place] us relationship,condoms, andwants to discuss contraceptive options.Endocrine symptomsFor sexual activity, patient reportsno sexual complaints,no pain during intercourse, andnormal libido. For menopausal symptoms, patient reportsno menopausal symptomsandnormal vaginal lubrication.Psychologi katey symptomsFor psychological symptoms, patient reportsno depression,no anxiety, andno pmdd.Preventative measuresFor preventive measures, patient reportsencourage self breast examination,encourage regular exercise, andencourage no tobacco use.ROS as noted in the HPI Pt presents for annual/not due for pap. Pt has had Gardasil. Menses q month x 5 days--mod flow/+cramps--Advil helps. Sexually active w/same partner x 2 months--+ condoms every time (has had only this partner ever)--he has had other partners. No breast/vaginal concerns. Eats well/+ exercise (on swim team at school). Nonsmoker. 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 Pt mom w/hx breast cancer and is positive for BRCA gene--interested in BRCA testing BIPIN NUÑEZ, VINICIUS [address] [facility], [place], [address], [place] - [facility] 11/07/2017 13:13:15 05/16/2019 text/html [facility] Annual GYNRe ported by PatientHistoryFor history, patient reportsno gynecologic complaintsandno change in interval history.Genitourinary symptomsFor menstrual cycle, patient reportsnormal menses(+dysmenorrhea). For urinary symptoms, patient reportsno hematuriaandno incontinence. For vulva, patient reportsno genital lesion. For vagina, patient reportsnormal vaginal discharge.Breast symptomsFor breast, patient reportsno breast pain,no breast lump, andno nipple discharge.Contraceptio nFor current contraception, patient reportsmonogamous relationship,condoms, andwants to discuss contraceptive options.Endocrine symptomsFor sexual activity, patient reportsno sexual complaints,no pain during intercourse,normal libido, andsexually active yes __.Psychological symptomsFor psychological symptoms, patient reportsno depression,no anxiety, andno pmdd.Preventative measuresFor preventive measures, patient reportsencourage self breast examination,encourage regular exercise,encourage no tobacco use, andfollowed with yearly pap smears.ROS as noted in the HPI Presents for annual/due for pap. Pt was on OC's but is overdue for annual--has been off OC's x 2 months. Considering IUD for contraception b/c she has hard time remembering to take her pill. Menses q month/+ dysmenorrhea. Pt sexually active w/same partner x 2 months/using condoms now. Has had Gardasil. Pt w/no new medical problems. Pt mother w/+BRCA 2 gene--pt was tested 10/2017 and had positive results (BRCA2)--never came in for consult. Eats ok/some exercise. Nonsmoker. 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
== END 2025-09-29 13:41 | disposition home or self-care (01) ==
LOC: HO.HMCH 12:52
DX: E03.9 Hypothyroidism, unspecified (principal); Z34.92 Encounter for supervision of normal pregnancy, unspecified, second trimester; Z15.01 Genetic susceptibility to malignant neoplasm of breast; Z15.09 Genetic susceptibility to other malignant neoplasm

== ENCOUNTER → 2025-09-29 12:51 | Outpatient (BNVA) | payer OTHER, SELFPAY | DX: Z34.92 Encounter for supervision of normal pregnancy, unspecified, second trimester (principal); Z15.01 Genetic susceptibility to malignant neoplasm of breast; Z15.09 Genetic susceptibility to other malignant neoplasm; E03.9 Hypothyroidism, unspecified; Z3A.22 22 weeks gestation of pregnancy; Z79.82 Long term (current) use of aspirin | CPT/HCPCS: 96127 ==

== ENCOUNTER 2025-11-16 10:40 | Outpatient (REF) | payer OTHER, SELFPAY ==
[2025-11-16 12:02] LABS: MANUAL DIFF FLAG NO
[2025-11-16 12:28] LABS: Hematocrit 31.8 % (37.0-47.0); Hemoglobin 10.2 g/dl (12.0-16.0); Imm Gran Abs Auto 0.22 X10*3/uL (0.00-0.03); Imm Gran Pct Auto 2.1 % (0.0-0.4); Lymphocytes Absolute Auto 1.5 X10*3/uL (1.2-4.9); Mean Corpuscular HGB Conc 32.1 g/dl (31.0-35.0); Mean Corpuscular Hemoglobin 26.9 pg (27.0-33.0); Mean Corpuscular Volume 83.9 fL (80.0-98.0); NRBC Abs Auto 0.000 X10*3/uL (0.0-0.012); NRBC Pct Auto 0.0 /100WBC (0.0-0.2); Platelet Count 244 X10*3/uL (160-400); Red Blood Count 3.79 X10*6/uL (4.20-5.50); White Blood Count 10.6 X10*3/uL (4.8-10.8)
[2025-11-16 12:48] LABS: Glucose 1 Hour PP 50gm Dose 99 mg/dL (60-140)
[2025-11-17 07:42] LABS: Syphilis Screen Nonreactive (Nonreactive)
== END 2025-11-16 10:41 ==
LOC: HO.LAB 10:40
PROVIDERS: Visit Provider Obstetrics & Gynecology
DX: Z34.82 Encounter for supervision of other normal pregnancy, second trimester (principal); Z01.84 Encounter for antibody response examination
CPT/HCPCS: 36415; 82950; 85025; 86780